=== PATIENT | female | born 1935 | race Caucasian/White ===

== ENCOUNTER 2016-11-21 13:28 | Inpatient (IN) | payer MEDICARE, OTHER ==
[~2016-11-21] VITALS: Ht 152.4 cm; Wt 45.9 kg
[~2016-11-21 13:28] MED LIST: ACET500T68 PO; CLON0.5T PO; CLON0.5T3 PO; CYAN500T17 PO; DICL100G18 TP; DIVA125C PO; DIVA500T2 PO; HYDR12.58 PO; LISI-373 PO; LISI10TA2 PO; MAGN2400 PO; MIRT15TA PO; OLAN5TAB5 PO; QUET25TA5 PO; TRAZ50TA15 PO
[2016-11-21 14:56] LABS: BASO % 0 % (0-3); EOS # 0.1 x10^3/uL (0.0-0.7); EOS % 2 % (0-3); HEMATOCRIT 34.3 % (36.0-47.0); HEMOGLOBIN 11.1 g/dL (12.0-15.5); LYMPH # 1.4 x10^3/uL (1.0-4.8); LYMPH % 16 % (24-48); MEAN CORPUSCULAR HEMOGLOBIN 31 pg (25-35); MEAN CORPUSCULAR HGB CONC 33 g/dL (31-37); MEAN CORPUSCULAR VOLUME 94 fL (79-100); MONO # 0.8 x10^3/uL (0.0-1.1); MONO % 9 % (0-9); NEUT # 6.3 x10^3uL (1.8-7.7); NEUT % 73 % (31-73); PLATELET COUNT 196 x10^3/uL (140-400); RED BLOOD COUNT 3.64 x10^6/uL (3.50-5.40); RED CELL DISTRIBUTION WIDTH 15.2 % (11.5-14.5); WHITE BLOOD COUNT 8.7 x10^3/uL (4.0-11.0)
[2016-11-21 15:07] LABS: ALBUMIN 3.7 g/dL (3.4-5.0); CALCIUM 10.5 mg/dL (8.5-10.1); CREATININE 1.3 mg/dL (0.6-1.0); GFR 39.2; TOTAL BILIRUBIN 0.4 mg/dL (0.2-1.0); TOTAL PROTEIN 7.5 g/dL (6.4-8.2)
--- NOTE | 2016-11-21 15:27 | EKG ---
[address] [address] Test Date: 2016-11-21 Test Time: 15:26:03 Pat Name: CLARKE SERVIN Department: Room: Gender: F Entry Level Administrative Assistant: : [id number] Requested By: NORTH HOUGH Order Number: [id number] Reading MD: Gaudencio Alfaro Measurements Intervals [place] Rate: 59 P: 60 GA: 142 QRS: -24 QRSD: 74 T: 65 QT: 432 QTc: 428 Interpretive Statements SINUS RHYTHM Electronically Signed On 11-28-2016 14:13:38 CDT by Gaudencio Alfaro
[2016-11-21 16:10] LABS: CLARITY,URINE CLOUDY
[2016-11-21 16:11] LABS: BILIRUBIN,URINE NEG (NEG); COLOR,URINE YELLOW; GLUCOSE,URINE NEG (NEG); NITRITE,URINE NEG (NEG); UROBILINOGEN,URINE 0.2 mg/dL (0.2 mg/dL)
[2016-11-21 16:12] LABS: BACTERIA,URINE MANY /HPF (0-FEW); RBC,URINE 0 /HPF (0-2); WBC,URINE >40 /HPF (0-4)
[2016-11-21] MEDS ORDERED: CIPROFLOXACIN HCL 500 MG TABLET PO ONE (17:45)
--- NOTE | 2016-11-21 18:42 | ED.ADGEN ---
Past History Past Medical History: Anxiety, Dementia, Hypertension, Hypothyroid, Other Past Surgical History: Other Alcohol Use: None Drug Use: None Adult General Chief Complaint Chief Complaint Encounter for medical evaluation for psychiatric admission HPI HPI Patient is a 81-year-old female with history of dementia who presents with counter for medical clearance for psychiatric admission. Patient's been confused agitated and combative with [facility] staff members. Patient alert, cooperative on ED evaluation. Denies current complaints. History is limited by the patient's short-term memory impairment. Review of Systems Review of Systems ROS as per HPI. Current Medications Current Medications Current Medications Medications (Trade) Dose Ordered Sig/Onelia Start Time Stop Time Status Last Admin Dose Admin Ciprofloxacin (Cipro) 500 mg 1X ONCE 11/21/16 17:45 11/21/16 17:46 DC 11/21/16 17:38 500 MG Allergies Allergies Allergies Coded Allergies Type Severity Reaction Last Updated Verified amoxicillin Allergy Intermediate 12/08/14 Yes dextromethorphan Allergy Intermediate 12/08/14 Yes phenylephrine Allergy Intermediate 12/08/14 Yes pyrilamine Allergy Intermediate 12/08/14 Yes Physical Exam Physical Exam Constitutional: Well developed, well nourished, no acute distress, non-toxic appearance. HENT: Normocephalic, atraumatic, bilateral external ears normal, oropharynx moist, nose normal. Eyes: PERRLA, EOMI, conjunctiva normal. Neck: Normal range of motion, no tenderness, supple. Cardiovascular:Heart rate regular rhythm, no murmur. Lungs & Thorax: Bilateral breath sounds clear to auscultation. Abdomen: Bowel sounds normal, soft, no tenderness. Skin: Warm, dry, no erythema. Back: No tenderness. Extremities: No tenderness. Neurologic: Alert and oriented X 1, normal motor function, normal sensory function no focal deficits noted. [] Psychologic: Affect normal, judgement normal, mood normal. [] Current Patient Data Vital Signs Vital Signs Date Time Temp Pulse Resp B/P Pulse Ox O2 Delivery O2 Flow Rate FiO2 11/21/16 17:55 66 16 130/74 98 Room Air 11/21/16 14:10 98.0 Lab Results Laboratory Tests Test 11/21/16 14:43 11/21/16 15:09 White Blood Count 8.7x10^3/uL (4.0-11.0) Red Blood Count 3.64x10^6/uL (3.50-5.40) Hemoglobin 11.1g/dL (12.0-15.5) L Hematocrit 34.3% (36.0-47.0) L Mean Corpuscular Volume 94fL (79-100) Mean Corpuscular Hemoglobin 31pg (25-35) Mean Corpuscular Hemoglobin Concent 33g/dL (31-37) Red Cell Distribution Width 15.2% (11.5-14.5) H Platelet Count 196x10^3/uL (140-400) Neutrophils (%) (Auto) 73% (31-73) Lymphocytes (%) (Auto) 16% (24-48) L Monocytes (%) (Auto) 9% (0-9) Eosinophils (%) (Auto) 2% (0-3) Basophils (%) (Auto) 0% (0-3) Neutrophils # (Auto) 6.3x10^3uL (1.8-7.7) Lymphocytes # (Auto) 1.4x10^3/uL (1.0-4.8) Monocytes # (Auto) 0.8x10^3/uL (0.0-1.1) Eosinophils # (Auto) 0.1x10^3/uL (0.0-0.7) Basophils # (Auto) 0.0x10^3/uL (0.0-0.2) Sodium Level 146mmol/L (136-145) H Potassium Level 4.0mmol/L (3.5-5.1) Chloride Level 107mmol/L (98-107) Carbon Dioxide Level 34mmol/L (21-32) H Anion Gap 5 (6-14) L Blood Urea Nitrogen 37mg/dL (7-20) H Creatinine 1.3mg/dL (0.6-1.0) H Estimated GFR (Cockcroft-Gault) 39.2 BUN/Creatinine Ratio 28 (6-20) H Glucose Level 136mg/dL (70-99) H Calcium Level 10.5mg/dL (8.5-10.1) H Total Bilirubin 0.4mg/dL (0.2-1.0) Aspartate Amino Transferase (AST) 15U/L (15-37) Alanine Aminotransferase (ALT) 20U/L (14-59) Alkaline Phosphatase 88U/L (46-116) Total Protein 7.5g/dL (6.4-8.2) Albumin 3.7g/dL (3.4-5.0) Albumin/Globulin Ratio 1.0 (1.0-1.7) Urine Collection Type U cath Urine Color Yellow Urine Clarity Cloudy Urine pH 7.0 Urine Specific [place] 1.020 Urine Protein 100 mg/dl (NEG-TRACE) Urine Glucose (UA) Negmg/dL (NEG) Urine Ketones (Stick) Tracemg/dL (NEG) Urine Blood Small (NEG) Urine Nitrite Neg (NEG) Urine Bilirubin Neg (NEG) Urine Urobilinogen Dipstick 0.2mg/dL (0.2 mg/dL) Urine Leukocyte Esterase Mod (NEG) Urine RBC 0/HPF (0-2) Urine WBC >40/HPF (0-4) Urine Squamous Epithelial Cells None/LPF Urine Bacteria Many/HPF (0-FEW) EKG EKG [] Radiology/Procedures Radiology/Procedures [] Impressions: Encounter for medical clearance for psychiatric admission Course & Med Decision Making Course & Med Decision Making Pertinent Labs and Imaging studies reviewed. (See chart for details) [Patient medically cleared. UTI addressed.] Final Impression Final Impression [1. Encounter for medical clearance for psychiatric admission. ] Problems: Dragon Disclaimer Dragon Disclaimer This electronic medical record was generated, in whole or in part, using a voice recognition dictation system. NORTH HOUGH DO Nov 21, 2016 18:42
[2016-11-21 20:03] VITALS: BP 129/77
[2016-11-21] MEDS ORDERED: MAGNESIUM HYDROXIDE 2,400 MG/30 ML ORAL.SUSP. PO PRN (20:15)
[2016-11-21] MEDS ORDERED: ACETAMINOPHEN 325 MG TABLET PO PRN (20:15)
[2016-11-21] MEDS ORDERED: MAG HYDROX/AL HYDROX/SIMETH 30 ML ORAL.SUSP PO PRN (20:15)
[2016-11-21] MEDS ORDERED: METHYL SALICYLATE/MENTHOL TOPICAL OINTMENT 29GM TUBE. TP PRN (20:15)
[2016-11-21] MEDS ORDERED: ACET500T68 PO (20:31)
[2016-11-21 20:48] LABS: VAL ACID 41 mcg/mL (50-100)
--- NOTE | 2016-11-21 21:06 | PDOC ---
Exam Tristin Demential Exam: Tristin Note: Please also refer to the separate dictated note~for this date of service dictated separately.~Patient seen individually. Discussed the patient with Nursing staff reviewed the chart.~Reviewed interim history and current functioning. Reviewed vital signs,~Labs/ Radiology~and current medications noted below. Continue current treatment with the changes noted in the dictated addendum note Assessment: Vital Signs: Vital Signs Date Time Temp Pulse Resp B/P Pulse Ox O2 Delivery O2 Flow Rate FiO2 11/21/16 20:03 98.1 58 16 129/77 95 Room Air Labs: Laboratory Tests Test 11/21/16 14:43 11/21/16 15:09 White Blood Count 8.7x10^3/uL (4.0-11.0) Red Blood Count 3.64x10^6/uL (3.50-5.40) Hemoglobin 11.1g/dL (12.0-15.5) L Hematocrit 34.3% (36.0-47.0) L Mean Corpuscular Volume 94fL (79-100) Mean Corpuscular Hemoglobin 31pg (25-35) Mean Corpuscular Hemoglobin Concent 33g/dL (31-37) Red Cell Distribution Width 15.2% (11.5-14.5) H Platelet Count 196x10^3/uL (140-400) Neutrophils (%) (Auto) 73% (31-73) Lymphocytes (%) (Auto) 16% (24-48) L Monocytes (%) (Auto) 9% (0-9) Eosinophils (%) (Auto) 2% (0-3) Basophils (%) (Auto) 0% (0-3) Neutrophils # (Auto) 6.3x10^3uL (1.8-7.7) Lymphocytes # (Auto) 1.4x10^3/uL (1.0-4.8) Monocytes # (Auto) 0.8x10^3/uL (0.0-1.1) Eosinophils # (Auto) 0.1x10^3/uL (0.0-0.7) Basophils # (Auto) 0.0x10^3/uL (0.0-0.2) Sodium Level 146mmol/L (136-145) H Potassium Level 4.0mmol/L (3.5-5.1) Chloride Level 107mmol/L (98-107) Carbon Dioxide Level 34mmol/L (21-32) H Anion Gap 5 (6-14) L Blood Urea Nitrogen 37mg/dL (7-20) H Creatinine 1.3mg/dL (0.6-1.0) H Estimated GFR (Cockcroft-Gault) 39.2 BUN/Creatinine Ratio 28 (6-20) H Glucose Level 136mg/dL (70-99) H Calcium Level 10.5mg/dL (8.5-10.1) H Magnesium Level 2.5mg/dL (1.8-2.4) H Total Bilirubin 0.4mg/dL (0.2-1.0) Aspartate Amino Transferase (AST) 15U/L (15-37) Alanine Aminotransferase (ALT) 20U/L (14-59) Alkaline Phosphatase 88U/L (46-116) Total Protein 7.5g/dL (6.4-8.2) Albumin 3.7g/dL (3.4-5.0) Albumin/Globulin Ratio 1.0 (1.0-1.7) Valproic Acid Level 41mcg/mL (50-100) L Valproic Acid Last Dose Date 11/20/16 Valproic Acid Last Dose Time 2100 Urine Collection Type U cath Urine Color Yellow Urine Clarity Cloudy Urine pH 7.0 Urine Specific [place] 1.020 Urine Protein 100 mg/dl (NEG-TRACE) Urine Glucose (UA) Negmg/dL (NEG) Urine Ketones (Stick) Tracemg/dL (NEG) Urine Blood Small (NEG) Urine Nitrite Neg (NEG) Urine Bilirubin Neg (NEG) Urine Urobilinogen Dipstick 0.2mg/dL (0.2 mg/dL) Urine Leukocyte Esterase Mod (NEG) Urine RBC 0/HPF (0-2) Urine WBC >40/HPF (0-4) Urine Squamous Epithelial Cells None/LPF Urine Bacteria Many/HPF (0-FEW) Current Medications: Meds: Current Medications Ciprofloxacin (Cipro) 500 mg 1X ONCE PO Last administered on 11/21/16t 17:38; Start 11/21/16 at 17:45; Stop 11/21/16 at 17:46; Status DC Acetaminophen (Tylenol) 650 mg PRN Q6HRS PRN PO PAIN / TEMP; Start 11/21/16 at 20:15 Multi-Ingredient Ointment (Analgesic [place]) 1 lisa PRN QID PRN TP MUSCLE PAIN; Start 11/21/16 at 20:15 Al Hydroxide/Mg Hydroxide (Mylanta Plus Xs) 15 ml PRN AFTMEALHC PRN PO DYSPEPSIA; Start 11/21/16 at 20:15 Magnesium Hydroxide (Milk Of Magnesia) 2,400 mg PRN QHS PRN PO CONSTIPATION; Start 11/21/16 at 20:15 Active Scripts Active Reported Acetaminophen 500 Mg Tablet 500 Mg PO Zyprexa Zydis (Olanzapine) 5 Mg Tab.rapdis 1.25 Mg PO PRN Q2HR PRN Remeron (Mirtazapine) 15 Mg Tablet 15 Mg PO QHS Milk Of Magnesia (Magnesium Hydroxide) 2,400 Mg/10 Ml Oral.susp 2,400 Mg PO PRN QHS PRN Acetaminophen 500 Mg Tablet 650 Mg PO PRN Q6HRS PRN Depakote Sprinkle (Divalproex Sodium) 125 Mg Cap.sprink 250 Mg PO BID Klonopin (Clonazepam) 0.5 Mg Tablet 0.25 Mg PO TID Trazodone Hcl 50 Mg Tablet 150 Mg PO HS Seroquel (Quetiapine Fumarate) 25 Mg Tablet 25 Mg PO BID92 PRN Voltaren (Diclofenac Sodium) 100 Gm Gel..gram. 2 Applic TP QID APPLY TO SACRAL AREA B-12 (Cyanocobalamin (Vitamin B-12)) 500 Mcg Tablet 1,000 Mcg PO DAILY Diagnosis: Problems: (1) Dementia with behavioral disturbance ILIA BUCKNER MD Nov 21, 2016 21:06
[2016-11-21] MEDS ORDERED: BIFI4CAP PO (21:32)
[2016-11-21] MEDS ORDERED: HYDR25SU18 RC (21:33)
[2016-11-21] MEDS ORDERED: MENT118G TP (21:34)
[2016-11-21] MEDS ORDERED: BISA10SU2 RC (21:35)
[2016-11-21] MEDS ORDERED: NA P133E2 RC (21:38)
[2016-11-21] MEDS ORDERED: LEVO25TA4 PO (21:43)
[2016-11-21] MEDS ORDERED: MEMA10TA PO (21:43)
[2016-11-21] MEDS ORDERED: CALC-157 PO (21:45)
[2016-11-21] MEDS ORDERED: POLY255P PO (21:46)
[2016-11-21] MEDS ORDERED: SENN1TAB7 PO (21:46)
[2016-11-21] MEDS ORDERED: TRAM50TA PO (21:47)
[2016-11-21] MEDS ORDERED: CHOL10003 PO (21:48)
--- NOTE | 2016-11-21 23:14 | NUR ---
Admission Note: Patient arrived from ED via gurney accompanied by staff. Pt's belongings were inventoried, pt was oriented to unit and unit routines. Medical History and Assessment entered. Will continue to monitor.
[2016-11-21] MEDS: DIVALPROEX 125 MG CAP.SPRINK PO SCH (23:30)
[2016-11-21] MEDS: MIRTAZAPINE 15 MG TABLET PO SCH (23:30)
--- NOTE | 2016-11-22 01:32 | NUR ---
Behavior Intervention Response and Plan: BIRP Note: Behavior: Assumed Care of patient, patient located in Day Room at shift change. Patient exhibited the following behavior Calm, Disorganized, Resistive. Brief assessment on rounds of vital signs, medication needs, lab studies, and pain. Treatment plan problems Dementia with BD, Alteration in Mood and Fall risk. Intervention: Patient assessed and the following interventions initiated safety checks 15 Minute Checks Cognitive Assessment , Head to toe Assessment , Medications. Response: After interactions and interventions patient responded in the following manner, Disorganized , Resistive ,Restless. Continue to assess behaviors and condition will continue to monitor throughout the shift as needed. Plan: Continue to monitor Master Treatment Plan for patient's progress toward short term goals of Decreased Aggression, Medication Compliance, terminal manager goals to return to previous living setting vs placement. Continue to assess patient for changes in above assessment. Monitor for medication needs, pain, and safety concerns. Hourly rounding performed to ensure safe environment.
[2016-11-22] MEDS ORDERED: HYDROCORTISONE ACETATE 25 MG SUPP.RECT RC PRN (06:30)
[2016-11-22] MEDS ORDERED: traMADol 50 MG TABLET PO PRN (06:30)
[2016-11-22] MEDS ORDERED: ACETAMINOPHEN 500 MG TABLET PO PRN (06:30)
[2016-11-22] MEDS ORDERED: NON FORMULARY ITEM (Magnesium Hydroxide (Milk Of Magnesia) 2,400 MG) PO PRN (06:30)
[2016-11-22] MEDS ORDERED: BISACODYL 10 MG SUPP.RECT RC PRN (06:30)
[2016-11-22] MEDS ORDERED: NON FORMULARY ITEM (Menthol (Biofreeze) 1 APP) TP PRN (06:30)
[2016-11-22 07:17] VITALS: BP 151/66
[2016-11-22] MEDS ORDERED: LEVOTHYROXINE 25 MCG TABLET. PO SCH (07:30)
[2016-11-22] MEDS: MEMANTINE 10 MG TABLET. PO SCH ×2 (08:44→20:13)
[2016-11-22] MEDS: SENNOSIDES/DOCUSATE 8.6/50MG TABLET. PO SCH ×2 (08:44→20:13)
[2016-11-22] MEDS: POLYETHYLENE GLYCOL 3350 17 GM PACKET. PO SCH (08:44)
[2016-11-22] MEDS: LACTOBACILLUS ACIDOPH & BULGAR 1 TABLET. PO SCH (08:44)
[2016-11-22] MEDS: CALCIUM CARB/VIT D3 500/200 TABLET PO SCH (08:44)
[2016-11-22] MEDS: CYANOCOBALAMIN (VITAMIN B-12) 1,000 MCG TABLET. PO SCH (08:44)
[2016-11-22] MEDS: CHOLECALCIFEROL (VITAMIN D3) 1,000 UNIT TABLET PO SCH (08:45)
--- NOTE | 2016-11-22 09:38 | NUR ---
SW reviewed Pt. insurance upon admit. Face sheet, CSNAP and Intake state Pt's insurance is Medicare primary and BCBS supplement. No auth needed at this time.
--- NOTE | 2016-11-22 10:09 | NUR ---
Behavior Intervention Response and Plan: BIRP Note: Behavior: Assumed Care of patient, patient located in Day Room at shift change. Patient exhibited the following behavior Restless, Disorganized, Irritable. Brief assessment on rounds of vital signs, medication needs, lab studies, and pain. Treatment plan problems . Intervention: Patient assessed and the following interventions initiated safety checks 15 Minute Checks Cognitive Assessment , Head to toe Assessment , Medications. Response: After interactions and interventions patient responded in the following manner, Disorganized , Compliant ,Compliant. Continue to assess behaviors and condition will continue to monitor throughout the shift as needed. Plan: Continue to monitor Master Treatment Plan for patient's progress toward short term goals of Decreased Agitation, Decreased Aggression, technician terminal and repeater goals to return to previous living setting vs placement. Continue to assess patient for changes in above assessment. Monitor for medication needs, pain, and safety concerns. Hourly rounding performed to ensure safe environment.
[2016-11-22] MEDS ORDERED: FOSFOMYCIN TROMETHAMINE 3 GM PACKET PO ONE (13:00)
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
--- NOTE | 2016-11-22 14:40 | ACF ---
Admission Criteria Forms PSYCHIATRIC DISORDERS Clinical Indications for Inpatient Care (Place 'X' for any and all applicable criteria): Ongoing inpatient care may be needed for ANY ONE of the following(1)(2)(3)(4)(6) (7)(8): [ ]I. Danger to self or others not manageable at lower level of care. [ ]II. Grave disability (eg, inability to perform self care necessary at lower level of care) [ ]III. Agitation or inappropriate behavior interfering with care for primary condition (eg, attempting to discontinue lines or drains prematurely, unable to cooperate with respiratory care) [X]IV. Severe disability or disorder indicated by ALL of the following: [X]a) Severe behavioral health disorder-related symptoms or condition indicated by ANY ONE of the following: [ ]i) Severe problem with cognition, memory, judgment, or impulse control [X]ii) Severe clinical manifestations (eg, hallucinations, delusions, other acute psychotic symptoms, edyta, extreme agitation or anxiety) [X]b) Patient management at lower level of care is not feasible until acute intervention or modification is initiated. Extended stay beyond goal length of stay for the primary condition may be indicated when ANY ONE of the following is present: (1)(2)(3)(4): [ ]a) Patient is a danger to self or others and not manageable at lower level of care. [ ]b) Behavior crisis management, including physical or chemical restraints, is required and is not available at a lower level of care. [ ]c) Behavioral symptoms (e.g., agitation, somnolence, inappropriate behavior) are present, and are not manageable at a lower level of care. [ ]d) Patient cannot understand follow-up treatment and crisis plan. [ ]e) Provider and supports are not sufficiently available at lower level of care. [ ]f) Patient cannot participate (e.g., verify absence of plan for harm) and is in needed of monitoring. The original [facility] [employer] content created by [facility] [employer] has been revised. The portions of the content which have been revised are identified through the use of italic text or in bold, and [facility] has neither reviewed nor approved the modified material. All other unmodified content is copyright [facility] [employer]. Please see references footnoted in the original [facility] edition 2016 Admission Criteria Met?: Yes KHALIF ELIZABETH Nov 22, 2016 14:40
--- NOTE | 2016-11-22 15:03 | NUR ---
pt up in wc. confused. impulsive at times. compliant with meds. appetite poor. to encourage fluids.
[2016-11-22 16:19] VITALS: BP 116/66
[2016-11-22 18:11] LABS: T3 TOTAL 90 ng/dL (71-180); THYROXINE 6.8 ug/dL (4.5-12.0)
[2016-11-22] MEDS: MIRTAZAPINE 15 MG TABLET PO SCH (20:13)
[2016-11-22] MEDS: DIVALPROEX 125 MG CAP.SPRINK PO SCH (20:13)
--- NOTE | 2016-11-22 21:06 | PDOC ---
Exam Tristin Demential Exam: Tristin Note: Please also refer to the separate dictated note~for this date of service dictated separately.~Patient seen individually. Discussed the patient with Nursing staff reviewed the chart.~Reviewed interim history and current functioning. Reviewed vital signs,~Labs/ Radiology~and current medications noted below. Continue current treatment with the changes noted in the dictated addendum note Assessment: Vital Signs: Vital Signs Date Time Temp Pulse Resp B/P Pulse Ox O2 Delivery O2 Flow Rate FiO2 11/22/16 16:19 96.7 81 16 116/66 95 11/21/16 20:03 Room Air I&O Intake and Output 11/22/16 07:00 Intake Total 50 ml Balance 50 ml Intake Oral 50 ml Current Medications: Meds: Current Medications Ciprofloxacin (Cipro) 500 mg 1X ONCE PO Last administered on 11/21/16 17:38; Start 11/21/16 at 17:45; Stop 11/21/16 at 17:46; Status DC Acetaminophen (Tylenol) 650 mg PRN Q6HRS PRN PO PAIN / TEMP; Start 11/21/16 at 20:15 Multi-Ingredient Ointment (Analgesic [place]) 1 emerson PRN QID PRN TP MUSCLE PAIN; Start 11/21/16 at 20:15 Al Hydroxide/Mg Hydroxide (Mylanta Plus Xs) 15 ml PRN AFTMEALHC PRN PO DYSPEPSIA; Start 11/21/16 at 20:15 Magnesium Hydroxide (Milk Of Magnesia) 2,400 mg PRN QHS PRN PO CONSTIPATION; Start 11/21/16 at 20:15 Divalproex Sodium (Depakote Sprinkles) 625 mg QHS PO Last administered on 20:13; Start 11/21/16 at 22:00 Memantine (Namenda) 10 mg BID PO Last administered on 11/22/16 20:13; Start at 09:00 Mirtazapine (Remeron) 15 mg QHS PO Last administered on 11/22/16 20:13; Start 11/21/16 at 22:00 Olanzapine (Zyprexa Zydis) 5 mg PRN QHS PRN PO PSYCHOSIS; Start 11/21/16 at 22: 00 Acetaminophen (Tylenol) 650 mg PRN Q6HRS PRN PO MILD PAIN / TEMP; Start at 06:30; Status Cancel Bisacodyl (Dulcolax Supp) 10 mg PRN DAILY PRN RC CONSTIPATION; Start 11/22/16 at 06:30 Calcium/Vitamin D (Oscal D 500mg/ 200uts) 1 tab DAILY PO Last administered on 08:44; Start 11/22/16 at 09:00 Vitamin D (Vitamin D3) 1,000 unit DAILY PO Last administered on 11/22/16 08:45 ; Start 11/22/16 at 09:00 Hydrocortisone Acetate (Anucort-Hc) 25 mg PRN QID PRN RC Hemmorhoids; Start at 06:30 Levothyroxine Sodium (Synthroid) 25 mcg DAILYAC PO Last administered on 06:31; Start 11/22/16 at 07:30 Polyethylene Glycol (miraLAX) 17 gm DAILY PO Last administered on 11/22/16 08: 44; Start 11/22/16 at 09:00 Senna/Docusate Sodium (Senna Plus) 1 tab BID PO Last administered on 11/22/16 20:13; Start 11/22/16 at 09:00 Tramadol HCl (Ultram) 50 mg PRN Q6HRS PRN PO MODERATE PAIN; Start 11/22/16 at 06:30 Lactobacillus Acidophilus (Bacid, Pat-Bid) 2 tab DAILY PO Last administered on 11/22/16 08:44; Start 11/22/16 at 09:00 Cyanocobalamin (Vitamin B-12) 1,000 mcg DAILY PO Last administered on 08:44; Start 11/22/16 at 09:00 Non-Formulary Medication 2,400 mg PRN QHS PRN PO CONSTIPATION; Start 11/22/16 at 06:30; Status UNV Non-Formulary Medication 1 emerson PRN QID PRN TP PAIN; Start 11/22/16 at 06:30; Status UNV Fosfomycin Tromethamine (Monurol) 3 gm 1X ONCE PO ; Start 11/22/16 at 13:00; Stop 11/22/16 at 13:02; Status DC Sertraline HCl (Zoloft) 25 mg DAILY PO ; Start 11/23/16 at 09:00; Stop 11/26/16 at 08:59 Sertraline HCl (Zoloft) 50 mg DAILY PO ; Start 11/26/16 at 09:00 Active Scripts Active Reported Vitamin D3 (Cholecalciferol (Vitamin D3)) 1,000 Unit Tablet 1,000 Unit PO DAILY Tramadol Hcl (Tramadol HCl) 50 Mg Tablet 50 Mg PO PRN Q6HRS PRN Senna-Docusate Sodium Tablet (Sennosides/Docusate Sodium) 1 Each Tablet 1 Tab PO BID Polyethylene Glycol 3350 255 Gm Powder 17 Gm PO DAILY Calcium 500 + Vit D 200 Tablet (Calcium Carbonate/Vitamin D3) 1 Each Tablet 1 Tab PO DAILY Namenda (Memantine Hcl) 10 Mg Tablet 28 Mg PO DAILY Levothyroxine Sodium 25 Mcg Tablet 25 Mcg PO DAILYAC Fleet Enema (Na Phos,M-B/Na Phos,Di-Ba) 133 Ml Enema 133 Ml RC DAILY Bisacodyl 10 Mg Supp.rect 10 Mg RC PRN DAILY PRN Biofreeze (Menthol) 118 Ml Gel..ml. 1 Emerson TP PRN QID PRN Anusol-Hc (Hydrocortisone Acetate) 25 Mg Supp.rect 25 Mg RC PRN QID PRN Align (Bifidobacterium Infantis) 4 Mg Capsule 4 Mg PO DAILY Acetaminophen 500 Mg Tablet 500 Mg PO QID Zyprexa Zydis (Olanzapine) 5 Mg Tab.rapdis 5 Mg PO QHS PRN Remeron (Mirtazapine) 15 Mg Tablet 15 Mg PO QHS Milk Of Magnesia (Magnesium Hydroxide) 2,400 Mg/10 Ml Oral.susp 2,400 Mg PO PRN QHS PRN Acetaminophen 500 Mg Tablet 650 Mg PO PRN Q6HRS PRN Depakote Sprinkle (Divalproex Sodium) 125 Mg Cap.sprink 625 Mg PO QHS B-12 (Cyanocobalamin (Vitamin B-12)) 500 Mcg Tablet 1,000 Mcg PO DAILY Diagnosis: Problems: (1) Dementia with behavioral disturbance (2) Anxiety disorder (3) Dementia in Alzheimer's disease with delusions (4) Dementia in Alzheimer's disease with depression (5) Dementia, vascular, with delusions (6) Dementia, vascular, with depression (7) Impulse control disorder ILIA BUCKNER MD Nov 22, 2016 21:06
--- NOTE | 2016-11-22 23:49 | NUR ---
Behavior Intervention Response and Plan: BIRP Note: Behavior: Assumed Care of patient, patient located in Day Room at shift change. Patient exhibited the following behavior Restless, Disorganized, Agitated. Brief assessment on rounds of vital signs, medication needs, lab studies, and pain. Treatment plan problems Dementia with BEd, Alteration in Mood, and Fall Risk. Intervention: Patient assessed and the following interventions initiated safety checks 15 Minute Checks Cognitive Assessment , Head to toe Assessment , Medications. Response: After interactions and interventions patient responded in the following manner, Restless , Disorganized ,Resistive. Continue to assess behaviors and condition will continue to monitor throughout the shift as needed. Plan: Continue to monitor Master Treatment Plan for patient's progress toward short term goals of Medication Compliance, Decreased Agitation, usp goals to return to previous living setting vs placement. Continue to assess patient for changes in above assessment. Monitor for medication needs, pain, and safety concerns. Hourly rounding performed to ensure safe environment.
--- NOTE | 2016-11-23 02:32 | NUR ---
Nursing Note: Pt very resistive to medication, restless, somewhat irritable. Pt awoke at 0200 confused, able to redirect. Will continue to monitor.
[2016-11-23 05:09] LABS: HEMOGLOBIN A1C 5.3 % (4.8-5.6)
[2016-11-23] MEDS: LEVOTHYROXINE 25 MCG TABLET. PO SCH (05:21)
[2016-11-23 05:57] VITALS: BP 125/79
[2016-11-23 07:06] LABS: ALBUMIN 3.8 g/dL (3.4-5.0); CREATININE 0.9 mg/dL (0.6-1.0); GFR 59.9; MAGNESIUM 2.3 mg/dL (1.8-2.4); TOTAL BILIRUBIN 0.3 mg/dL (0.2-1.0); TOTAL PROTEIN 7.8 g/dL (6.4-8.2)
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
--- NOTE | 2016-11-23 09:35 | NUR ---
Psychosocial Assessment completed from previous admit in 2014. Pt. born in [place], raised in [place] w/5 siblings during the Depression Era. Pt's father in Pt's 's, no known family history of alcohol or substance abuse. Pt. completed HS, named Mychal and has 1 child named Mckayla. Pt's in 2005. 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 Pt. has no history of alcohol, substance abuse or SI/HI. Pt. has resided at [facility] for at least 2 years. SW spoke w/Pt's dtr and was concerned w/some medications. SW encouraged Dtr. to call back and speak w/nursing. cMkayla will have a nurse from [facility] contact nursing at this facility to review medications.
[2016-11-23] MEDS: LACTOBACILLUS ACIDOPH & BULGAR 1 TABLET. PO SCH (09:37)
[2016-11-23] MEDS: MEMANTINE 10 MG TABLET. PO SCH ×2 (09:38→19:15)
[2016-11-23] MEDS: POLYETHYLENE GLYCOL 3350 17 GM PACKET. PO SCH (09:38)
[2016-11-23] MEDS: SENNOSIDES/DOCUSATE 8.6/50MG TABLET. PO SCH ×2 (09:38→19:16)
[2016-11-23] MEDS: CYANOCOBALAMIN (VITAMIN B-12) 1,000 MCG TABLET. PO SCH (09:38)
[2016-11-23] MEDS: CHOLECALCIFEROL (VITAMIN D3) 1,000 UNIT TABLET PO SCH (09:38)
[2016-11-23] MEDS: CALCIUM CARB/VIT D3 500/200 TABLET PO SCH (09:38)
[2016-11-23] MEDS: SERTRALINE 25 MG TABLET. PO SCH (09:39)
[2016-11-23] MEDS ORDERED: traZODone 50 MG TABLET. PO PRN (10:45)
--- NOTE | 2016-11-23 11:15 | NUR ---
THERAPEUTIC RECREATION GROUP NOTE TITLE :Movement to Music: Flexibility ACTIVITY : Movement/ Exercise GOAL : Increase morale, attention, flexibility. Decrease stress/anxiety. DURATION : 35 Minutes RESPONSE : No participation. Pt. was in room the entire time but did not engage with group.
--- NOTE | 2016-11-23 11:39 | NUR ---
Behavior Intervention Response and Plan: BIRP Note: Behavior: Assumed Care of patient, patient located in Patient Room at shift change. Patient exhibited the following behavior Disorganized, Exit Seeking, Wandering. Brief assessment on rounds of vital signs, medication needs, lab studies, and pain. Treatment plan problems . Intervention: Patient assessed and the following interventions initiated safety checks 15 Minute Checks Medications , Head to toe Assessment , Nutrition. Response: After interactions and interventions patient responded in the following manner, Social , Withdrawn ,Restless. Continue to assess behaviors and condition will continue to monitor throughout the shift as needed. 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 Continue to assess patient for changes in above assessment. Monitor for medication needs, pain, and safety concerns. Hourly rounding performed to ensure safe environment.
--- NOTE | 2016-11-23 14:45 | NUR ---
THERAPEUTIC RECREATION GROUP NOTE TITLE :Bin or Basket: [employer] history, quiz and game ACTIVITY : Activities and Games GOAL : Stimulate memory, increase socialization DURATION : 60 minutes RESPONSE : No participation.
[2016-11-23 15:42] VITALS: BP 121/74
[2016-11-23] MEDS: DIVALPROEX 125 MG CAP.SPRINK PO SCH (19:16)
[2016-11-23] MEDS: MIRTAZAPINE 15 MG TABLET PO SCH (19:16)
--- NOTE | 2016-11-23 21:12 | PDOC ---
Exam Tristin Demential Exam: Tristin Note: Please also refer to the separate dictated note~for this date of service dictated separately.~Patient seen individually. Discussed the patient with Nursing staff reviewed the chart.~Reviewed interim history and current functioning. Reviewed vital signs,~Labs/ Radiology~and current medications noted below. Continue current treatment with the changes noted in the dictated addendum note Assessment: Vital Signs: Vital Signs Date Time Temp Pulse Resp B/P Pulse Ox O2 Delivery O2 Flow Rate FiO2 11/23/16 19:00 100 11/23/16 15:42 98.1 63 18 121/74 11/21/16 20:03 Room Air I&O Intake and Output 11/23/16 07:00 Intake Total 410 ml Balance 410 ml Intake Oral 410 ml Labs: Laboratory Tests Test 11/23/16 06:29 Sodium Level 149mmol/L (136-145) H Potassium Level 4.0mmol/L (3.5-5.1) Chloride Level 108mmol/L (98-107) H Carbon Dioxide Level 32mmol/L (21-32) Anion Gap 9 (6-14) Blood Urea Nitrogen 34mg/dL (7-20) H Creatinine 0.9mg/dL (0.6-1.0) Estimated GFR (Cockcroft-Gault) 59.9 BUN/Creatinine Ratio 38 (6-20) H Glucose Level 106mg/dL (70-99) H Calcium Level 10.0mg/dL (8.5-10.1) Magnesium Level 2.3mg/dL (1.8-2.4) Total Bilirubin 0.3mg/dL (0.2-1.0) Aspartate Amino Transferase (AST) 27U/L (15-37) Alanine Aminotransferase (ALT) 30U/L (14-59) Alkaline Phosphatase 91U/L (46-116) Total Protein 7.8g/dL (6.4-8.2) Albumin 3.8g/dL (3.4-5.0) Albumin/Globulin Ratio 1.0 (1.0-1.7) Current Medications: Meds: Current Medications Ciprofloxacin (Cipro) 500 mg 1X ONCE PO Last administered on 11/21/16t 17:38; Start 11/21/16 at 17:45; Stop 11/21/16 at 17:46; Status DC Acetaminophen (Tylenol) 650 mg PRN Q6HRS PRN PO PAIN / TEMP; Start 11/21/16 at 20:15 Multi-Ingredient Ointment (Analgesic [place]) 1 emerson PRN QID PRN TP MUSCLE PAIN; Start 11/21/16 at 20:15 Al Hydroxide/Mg Hydroxide (Mylanta Plus Xs) 15 ml PRN AFTMEALHC PRN PO DYSPEPSIA; Start 11/21/16 at 20:15 Magnesium Hydroxide (Milk Of Magnesia) 2,400 mg PRN QHS PRN PO CONSTIPATION; Start 11/21/16 at 20:15 Divalproex Sodium (Depakote Sprinkles) 625 mg QHS PO Last administered on 19:16; Start 11/21/16 at 22:00 Memantine (Namenda) 10 mg BID PO Last administered on 11/23/16 19:15; Start at 09:00 Mirtazapine (Remeron) 15 mg QHS PO Last administered on 11/23/16 19:16; Start 11/21/16 at 22:00 Olanzapine (Zyprexa Zydis) 5 mg PRN QHS PRN PO PSYCHOSIS; Start 11/21/16 at 22: 00 Acetaminophen (Tylenol) 650 mg PRN Q6HRS PRN PO MILD PAIN / TEMP; Start at 06:30; Status Cancel Bisacodyl (Dulcolax Supp) 10 mg PRN DAILY PRN RC CONSTIPATION; Start 11/22/16 at 06:30 Calcium/Vitamin D (Oscal D 500mg/ 200uts) 1 tab DAILY PO Last administered on 09:38; Start 11/22/16 at 09:00 Vitamin D (Vitamin D3) 1,000 unit DAILY PO Last administered on 11/23/16 09:38 ; Start 11/22/16 at 09:00 Hydrocortisone Acetate (Anucort-Hc) 25 mg PRN QID PRN RC Hemmorhoids; Start at 06:30 Levothyroxine Sodium (Synthroid) 25 mcg DAILYAC PO Last administered on 06:31; Start 11/22/16 at 07:30; Stop 11/23/16 at 00:01; Status DC Polyethylene Glycol (miraLAX) 17 gm DAILY PO Last administered on 11/23/16 09: 38; Start 11/22/16 at 09:00 Senna/Docusate Sodium (Senna Plus) 1 tab BID PO Last administered on 11/23/16 19:16; Start 11/22/16 at 09:00 Tramadol HCl (Ultram) 50 mg PRN Q6HRS PRN PO MODERATE PAIN Last administered on 11/23/16 13:39; Start 11/22/16 at 06:30 Lactobacillus Acidophilus (Bacid, Pat-Bid) 2 tab DAILY PO Last administered on 11/23/16 09:37; Start 11/22/16 at 09:00 Cyanocobalamin (Vitamin B-12) 1,000 mcg DAILY PO Last administered on 09:38; Start 11/22/16 at 09:00 Non-Formulary Medication 2,400 mg PRN QHS PRN PO CONSTIPATION; Start 11/22/16 at 06:30; Status UNV Non-Formulary Medication 1 emerson PRN QID PRN TP PAIN; Start 11/22/16 at 06:30; Status UNV Fosfomycin Tromethamine (Monurol) 3 gm 1X ONCE PO ; Start 11/22/16 at 13:00; Stop 11/22/16 at 13:02; Status DC Sertraline HCl (Zoloft) 25 mg DAILY PO Last administered on 11/23/16 09:39; Start 11/23/16 at 09:00; Stop 11/26/16 at 08:59 Sertraline HCl (Zoloft) 50 mg DAILY PO ; Start 11/26/16 at 09:00 Levothyroxine Sodium (Synthroid) 25 mcg DAILY06 PO Last administered on 05:21; Start 11/23/16 at 06:00 Trazodone HCl (Desyrel) 50 mg PRN QHS PRN PO INSOMNIA; Start 11/23/16 at 10:45 Active Scripts Active Reported Vitamin D3 (Cholecalciferol (Vitamin D3)) 1,000 Unit Tablet 1,000 Unit PO DAILY Tramadol Hcl (Tramadol HCl) 50 Mg Tablet 50 Mg PO PRN Q6HRS PRN Senna-Docusate Sodium Tablet (Sennosides/Docusate Sodium) 1 Each Tablet 1 Tab PO BID Polyethylene Glycol 3350 255 Gm Powder 17 Gm PO DAILY Calcium 500 + Vit D 200 Tablet (Calcium Carbonate/Vitamin D3) 1 Each Tablet 1 Tab PO DAILY Namenda (Memantine Hcl) 10 Mg Tablet 28 Mg PO DAILY Levothyroxine Sodium 25 Mcg Tablet 25 Mcg PO DAILYAC Fleet Enema (Na Phos,M-B/Na Phos,Di-Ba) 133 Ml Enema 133 Ml RC DAILY Bisacodyl 10 Mg Supp.rect 10 Mg RC PRN DAILY PRN Biofreeze (Menthol) 118 Ml Gel..ml. 1 Emerson TP PRN QID PRN Anusol-Hc (Hydrocortisone Acetate) 25 Mg Supp.rect 25 Mg RC PRN QID PRN Align (Bifidobacterium Infantis) 4 Mg Capsule 4 Mg PO DAILY Acetaminophen 500 Mg Tablet 500 Mg PO QID Zyprexa Zydis (Olanzapine) 5 Mg Tab.rapdis 5 Mg PO QHS PRN Remeron (Mirtazapine) 15 Mg Tablet 15 Mg PO QHS Milk Of Magnesia (Magnesium Hydroxide) 2,400 Mg/10 Ml Oral.susp 2,400 Mg PO PRN QHS PRN Acetaminophen 500 Mg Tablet 650 Mg PO PRN Q6HRS PRN Depakote Sprinkle (Divalproex Sodium) 125 Mg Cap.sprink 625 Mg PO QHS B-12 (Cyanocobalamin (Vitamin B-12)) 500 Mcg Tablet 1,000 Mcg PO DAILY Diagnosis: Problems: (1) Dementia with behavioral disturbance (2) Anxiety disorder (3) Dementia in Alzheimer's disease with delusions (4) Dementia in Alzheimer's disease with depression (5) Dementia, vascular, with delusions (6) Dementia, vascular, with depression (7) Impulse control disorder ILIA BUCKNER MD Nov 23, 2016 21:12
--- NOTE | 2016-11-23 23:59 | NUR ---
Behavior Intervention Response and Plan: BIRP Note: Behavior: Assumed Care of patient, patient located in Day Room at shift change. Patient exhibited the following behavior Drowsy, Compliant, Disorganized. Brief assessment on rounds of vital signs, medication needs, lab studies, and pain. Treatment plan problems Dementia with BD, Fall Risk, and Fall Risk. Intervention: Patient assessed and the following interventions initiated safety checks 15 Minute Checks Cognitive Assessment , Head to toe Assessment , Medications. Response: After interactions and interventions patient responded in the following manner, Disorganized , Drowsy ,Cooperative. Continue to assess behaviors and condition will continue to monitor throughout the shift as needed. 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 Continue to assess patient for changes in above assessment. Monitor for medication needs, pain, and safety concerns. Hourly rounding performed to ensure safe environment.
[2016-11-24] MEDS: LEVOTHYROXINE 25 MCG TABLET. PO SCH (05:11)
[2016-11-24 06:24] VITALS: BP 181/94
[2016-11-24] MEDS: CYANOCOBALAMIN (VITAMIN B-12) 1,000 MCG TABLET. PO SCH (08:58)
[2016-11-24] MEDS: CALCIUM CARB/VIT D3 500/200 TABLET PO SCH (08:58)
[2016-11-24] MEDS: MEMANTINE 10 MG TABLET. PO SCH ×2 (08:58→19:51)
[2016-11-24] MEDS: LACTOBACILLUS ACIDOPH & BULGAR 1 TABLET. PO SCH (08:58)
[2016-11-24] MEDS: SERTRALINE 25 MG TABLET. PO SCH (08:58)
[2016-11-24] MEDS: POLYETHYLENE GLYCOL 3350 17 GM PACKET. PO SCH (08:59)
[2016-11-24] MEDS: CHOLECALCIFEROL (VITAMIN D3) 1,000 UNIT TABLET PO SCH (08:59)
[2016-11-24] MEDS: SENNOSIDES/DOCUSATE 8.6/50MG TABLET. PO SCH ×2 (08:59→19:51)
--- NOTE | 2016-11-24 10:40 | NUR ---
Behavior Intervention Response and Plan: BIRP Note: Behavior: Assumed Care of patient, patient located in Day Room at shift change. Patient exhibited the following behavior Restless, Exit Seeking, Disorganized. Brief assessment on rounds of vital signs, medication needs, lab studies, and pain. Treatment plan problems . Intervention: Patient assessed and the following interventions initiated safety checks 15 Minute Checks Head to toe Assessment , Medications , Oral Hydration. Response: After interactions and interventions patient responded in the following manner, Disorganized , Non Compliant ,Resistive. Continue to assess behaviors and condition will continue to monitor throughout the shift as needed. 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 Continue to assess patient for changes in above assessment. Monitor for medication needs, pain, and safety concerns. Hourly rounding performed to ensure safe environment.
[2016-11-24 15:28] VITALS: BP 119/81
--- NOTE | 2016-11-24 16:00 | NUR ---
THERAPEUTIC RECREATION GROUP NOTE TITLE :Sergo Daniele Planter Painting ACTIVITY : Arts and Crafts GOAL : Increase creativity, fine motor, socialization. DURATION : 60 minutes RESPONSE : Minimal prompting. Pt. needed hand over hand assistance to paint can. She was cooperative but did not comprehend the task.
--- NOTE | 2016-11-24 18:45 | NUR ---
ACTIVITY THERAPY ASSESSMENT Completed based on observations and interview on this day at this time in the day room. Pt. was agreeable but had difficulty expressing herself and answering questions effectively. When asked what she likes to do for fun, Pt. smiled and started humming a tune. Pt. keeps to herself mostly but stays around group. Initial goal: Pt. will participate in all groups she is invited to.
--- NOTE | 2016-11-24 19:00 | NUR ---
THERAPEUTIC RECREATION GROUP NOTE TITLE :Complete the popular phrase/ idiom ACTIVITY : Cognitive Stimulation GOAL : Stimulate memory, Increase problem solving DURATION : 60 minutes RESPONSE : Minimal participation. Pt. sat with group the entire time but was quiet and did not shout out guesses. She did not find the correct word after being asked directly and with several clues.
[2016-11-24] MEDS: MIRTAZAPINE 15 MG TABLET PO SCH (19:51)
[2016-11-24] MEDS: DIVALPROEX 125 MG CAP.SPRINK PO SCH (19:52)
--- NOTE | 2016-11-24 21:04 | PDOC ---
Exam Tristin Demential Exam: Tristin Note: Please also refer to the separate dictated note~for this date of service dictated separately.~Patient seen individually. Discussed the patient with Nursing staff reviewed the chart.~Reviewed interim history and current functioning. Reviewed vital signs,~Labs/ Radiology~and current medications noted below. Continue current treatment with the changes noted in the dictated addendum note Assessment: Vital Signs: Vital Signs Date Time Temp Pulse Resp B/P Pulse Ox O2 Delivery O2 Flow Rate FiO2 11/24/16 15:28 97.2 73 18 119/81 95 11/24/16 05:52 Room Air I&O Intake and Output 11/24/16 07:00 Intake Total 1080 ml Balance 1080 ml Intake Oral 1080 ml Current Medications: Meds: Current Medications Ciprofloxacin (Cipro) 500 mg 1X ONCE PO Last administered on 11/21/16 17:38; Start 11/21/16 at 17:45; Stop 11/21/16 at 17:46; Status DC Acetaminophen (Tylenol) 650 mg PRN Q6HRS PRN PO PAIN / TEMP; Start 11/21/16 at 20:15 Multi-Ingredient Ointment (Analgesic [facility]) 1 emerson PRN QID PRN TP MUSCLE PAIN; Start 11/21/16 at 20:15 Al Hydroxide/Mg Hydroxide (Mylanta Plus Xs) 15 ml PRN AFTMEALHC PRN PO DYSPEPSIA; Start 11/21/16 at 20:15 Magnesium Hydroxide (Milk Of Magnesia) 2,400 mg PRN QHS PRN PO CONSTIPATION; Start 11/21/16 at 20:15 Divalproex Sodium (Depakote Sprinkles) 625 mg QHS PO Last administered on 19:16; Start 11/21/16 at 22:00; Stop 11/24/16 at 18:43; Status DC Memantine (Namenda) 10 mg BID PO Last administered on 11/24/16 19:51; Start at 09:00 Mirtazapine (Remeron) 15 mg QHS PO Last administered on 11/24/16 19:51; Start 11/21/16 at 22:00 Olanzapine (Zyprexa Zydis) 5 mg PRN QHS PRN PO PSYCHOSIS; Start 11/21/16 at 22: 00 Acetaminophen (Tylenol) 650 mg PRN Q6HRS PRN PO MILD PAIN / TEMP; Start at 06:30; Status Cancel Bisacodyl (Dulcolax Supp) 10 mg PRN DAILY PRN RC CONSTIPATION; Start 11/22/16 at 06:30 Calcium/Vitamin D (Oscal D 500mg/ 200uts) 1 tab DAILY PO Last administered on 08:58; Start 11/22/16 at 09:00 Vitamin D (Vitamin D3) 1,000 unit DAILY PO Last administered on 11/24/16 08:59 ; Start 11/22/16 at 09:00 Hydrocortisone Acetate (Anucort-Hc) 25 mg PRN QID PRN RC Hemmorhoids; Start at 06:30 Levothyroxine Sodium (Synthroid) 25 mcg DAILYAC PO Last administered on 06:31; Start 11/22/16 at 07:30; Stop 11/23/16 at 00:01; Status DC Polyethylene Glycol (miraLAX) 17 gm DAILY PO Last administered on 11/24/16 08: 59; Start 11/22/16 at 09:00 Senna/Docusate Sodium (Senna Plus) 1 tab BID PO Last administered on 11/24/16 19:51; Start 11/22/16 at 09:00 Tramadol HCl (Ultram) 50 mg PRN Q6HRS PRN PO MODERATE PAIN Last administered on 11/23/16 13:39; Start 11/22/16 at 06:30 Lactobacillus Acidophilus (Bacid, Pat-Bid) 2 tab DAILY PO Last administered on 11/24/16 08:58; Start 11/22/16 at 09:00 Cyanocobalamin (Vitamin B-12) 1,000 mcg DAILY PO Last administered on 08:58; Start 11/22/16 at 09:00 Non-Formulary Medication 2,400 mg PRN QHS PRN PO CONSTIPATION; Start 11/22/16 at 06:30; Status UNV Non-Formulary Medication 1 emerson PRN QID PRN TP PAIN; Start 11/22/16 at 06:30; Status UNV Fosfomycin Tromethamine (Monurol) 3 gm 1X ONCE PO ; Start 11/22/16 at 13:00; Stop 11/22/16 at 13:02; Status DC Sertraline HCl (Zoloft) 25 mg DAILY PO Last administered on 11/24/16 08:58; Start 11/23/16 at 09:00; Stop 11/26/16 at 08:59 Sertraline HCl (Zoloft) 50 mg DAILY PO ; Start 11/26/16 at 09:00 Levothyroxine Sodium (Synthroid) 25 mcg DAILY06 PO Last administered on 05:11; Start 11/23/16 at 06:00 Trazodone HCl (Desyrel) 50 mg PRN QHS PRN PO INSOMNIA; Start 11/23/16 at 10:45 Divalproex Sodium (Depakote Sprinkles) 250 mg DAILYWBKFT PO ; Start 11/25/16 at 08:00 Divalproex Sodium (Depakote Sprinkles) 500 mg HS PO Last administered on 19:52; Start 11/24/16 at 21:00 Active Scripts Active Reported Vitamin D3 (Cholecalciferol (Vitamin D3)) 1,000 Unit Tablet 1,000 Unit PO DAILY Tramadol Hcl (Tramadol HCl) 50 Mg Tablet 50 Mg PO PRN Q6HRS PRN Senna-Docusate Sodium Tablet (Sennosides/Docusate Sodium) 1 Each Tablet 1 Tab PO BID Polyethylene Glycol 3350 255 Gm Powder 17 Gm PO DAILY Calcium 500 + Vit D 200 Tablet (Calcium Carbonate/Vitamin D3) 1 Each Tablet 1 Tab PO DAILY Namenda (Memantine Hcl) 10 Mg Tablet 28 Mg PO DAILY Levothyroxine Sodium 25 Mcg Tablet 25 Mcg PO DAILYAC Fleet Enema (Na Phos,M-B/Na Phos,Di-Ba) 133 Ml Enema 133 Ml RC DAILY Bisacodyl 10 Mg Supp.rect 10 Mg RC PRN DAILY PRN Biofreeze (Menthol) 118 Ml Gel..ml. 1 Emerson TP PRN QID PRN Anusol-Hc (Hydrocortisone Acetate) 25 Mg Supp.rect 25 Mg RC PRN QID PRN Align (Bifidobacterium Infantis) 4 Mg Capsule 4 Mg PO DAILY Acetaminophen 500 Mg Tablet 500 Mg PO QID Zyprexa Zydis (Olanzapine) 5 Mg Tab.rapdis 5 Mg PO QHS PRN Remeron (Mirtazapine) 15 Mg Tablet 15 Mg PO QHS Milk Of Magnesia (Magnesium Hydroxide) 2,400 Mg/10 Ml Oral.susp 2,400 Mg PO PRN QHS PRN Acetaminophen 500 Mg Tablet 650 Mg PO PRN Q6HRS PRN Depakote Sprinkle (Divalproex Sodium) 125 Mg Cap.sprink 625 Mg PO QHS B-12 (Cyanocobalamin (Vitamin B-12)) 500 Mcg Tablet 1,000 Mcg PO DAILY Diagnosis: Problems: (1) Dementia with behavioral disturbance (2) Anxiety disorder (3) Dementia in Alzheimer's disease with delusions (4) Dementia in Alzheimer's disease with depression (5) Dementia, vascular, with delusions (6) Dementia, vascular, with depression (7) Impulse control disorder ILIA BUCKNER MD Nov 24, 2016 21:04
--- NOTE | 2016-11-24 21:15 | NUR ---
Behavior Intervention Response and Plan: BIRP Note: Behavior: Assumed Care of patient, patient located in Day Room at shift change. Patient exhibited the following behavior Restless, Anxious, Interactive. Brief assessment on rounds of vital signs, medication needs, lab studies, and pain. Treatment plan problems: Dementia with BD, alteration in Mood, Fall Risk . Intervention: Patient assessed and the following interventions initiated safety checks 15 Minute Checks Cognitive Assessment , Head to toe Assessment , Medications. Response: After interactions and interventions patient responded in the following manner, Calm , Compliant ,Cooperative. Continue to assess behaviors and condition will continue to monitor throughout the shift as needed. 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 Continue to assess patient for changes in above assessment. Monitor for medication needs, pain, and safety concerns. Hourly rounding performed to ensure safe environment.
[2016-11-25] MEDS: LEVOTHYROXINE 25 MCG TABLET. PO SCH (06:10)
[2016-11-25 06:32] VITALS: BP 159/76
[2016-11-25] MEDS: POLYETHYLENE GLYCOL 3350 17 GM PACKET. PO SCH (08:35)
[2016-11-25] MEDS: LACTOBACILLUS ACIDOPH & BULGAR 1 TABLET. PO SCH (08:35)
[2016-11-25] MEDS: DIVALPROEX 125 MG CAP.SPRINK PO SCH ×2 (08:35→19:43)
[2016-11-25] MEDS: SENNOSIDES/DOCUSATE 8.6/50MG TABLET. PO SCH ×2 (08:36→19:42)
[2016-11-25] MEDS: CYANOCOBALAMIN (VITAMIN B-12) 1,000 MCG TABLET. PO SCH (08:36)
[2016-11-25] MEDS: CHOLECALCIFEROL (VITAMIN D3) 1,000 UNIT TABLET PO SCH (08:36)
[2016-11-25] MEDS: MEMANTINE 10 MG TABLET. PO SCH ×2 (08:36→19:42)
[2016-11-25] MEDS: SERTRALINE 25 MG TABLET. PO SCH (08:36)
[2016-11-25] MEDS: CALCIUM CARB/VIT D3 500/200 TABLET PO SCH (08:36)
--- NOTE | 2016-11-25 10:53 | NUR ---
Behavior Intervention Response and Plan: BIRP Note: Behavior: Assumed Care of patient, patient located in Day Room at shift change. Patient exhibited the following behavior calm, cooperative, compliant, and confused. Brief assessment on rounds of vital signs, medication needs, lab studies, and pain. Treatment plan problems: Dementia with BD, alteration in Mood, Fall Risk . Intervention: Patient assessed and the following interventions initiated safety checks 15 Minute Checks Cognitive Assessment , Head to toe Assessment , Medications. Response: After interactions and interventions patient responded in the following manner, Calm , Compliant ,Cooperative. Continue to assess behaviors and condition will continue to monitor throughout the shift as needed. Plan: Continue to monitor Master Treatment Plan for patient's progress toward short term goals of Decreased agitation, Decreased Anxiety, Medication Compliance, Improved Mood, group home goals to return to previous living setting vs placement. Continue to assess patient for changes in above assessment. Monitor for medication needs, pain, and safety concerns. Hourly rounding performed to ensure safe environment.
--- NOTE | 2016-11-25 11:00 | NUR ---
THERAPEUTIC RECREATION GROUP NOTE TITLE :: Flower planting in painted tin cans ACTIVITY : Sensory Stimulation GOAL : Increase feeling of wellness, socialization, and facilitate memory DURATION : 30 minutes RESPONSE : No participation.
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
[2016-11-25 16:15] VITALS: BP 111/67
[2016-11-25] MEDS ORDERED: MELATONIN 3 MG TABLET PO PRN (18:30)
[2016-11-25] MEDS: MIRTAZAPINE 15 MG TABLET PO SCH (19:42)
--- NOTE | 2016-11-25 20:45 | NUR ---
Behavior Intervention Response and Plan: BIRP Note: Behavior: Assumed Care of patient, patient located in Day Room at shift change. Patient exhibited the following behavior Calm, anxious Withdrawn. Brief assessment on rounds of vital signs, medication needs, lab studies, and pain. Treatment plan problems: Dementia with BD, alteration in mood, fall risk . Intervention: Patient assessed and the following interventions initiated safety checks 15 Minute Checks Cognitive Assessment , Head to toe Assessment , Medications. Response: After interactions and interventions patient responded in the following manner, Calm , Cooperative ,Withdrawn. Continue to assess behaviors and condition will continue to monitor throughout the shift as needed. 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 Continue to assess patient for changes in above assessment. Monitor for medication needs, pain, and safety concerns. Hourly rounding performed to ensure safe environment.
--- NOTE | 2016-11-25 21:12 | PDOC ---
Exam Tristin Demential Exam: Tristin Note: Please also refer to the separate dictated note~for this date of service dictated separately.~Patient seen individually. Discussed the patient with Nursing staff reviewed the chart.~Reviewed interim history and current functioning. Reviewed vital signs,~Labs/ Radiology~and current medications noted below. Continue current treatment with the changes noted in the dictated addendum note Assessment: Vital Signs: Vital Signs Date Time Temp Pulse Resp B/P Pulse Ox O2 Delivery O2 Flow Rate FiO2 11/25/16 16:15 97.4 78 16 111/67 98 11/25/16 06:32 Room Air I&O Intake and Output 11/25/16 07:00 Intake Total 480 ml Balance 480 ml Intake Oral 480 ml Current Medications: Meds: Current Medications Ciprofloxacin (Cipro) 500 mg 1X ONCE PO Last administered on 11/21/16 17:38; Start 11/21/16 at 17:45; Stop 11/21/16 at 17:46; Status DC Acetaminophen (Tylenol) 650 mg PRN Q6HRS PRN PO PAIN / TEMP; Start 11/21/16 at 20:15 Multi-Ingredient Ointment (Analgesic [place]) 1 emerson PRN QID PRN TP MUSCLE PAIN; Start 11/21/16 at 20:15 Al Hydroxide/Mg Hydroxide (Mylanta Plus Xs) 15 ml PRN AFTMEALHC PRN PO DYSPEPSIA; Start 11/21/16 at 20:15 Magnesium Hydroxide (Milk Of Magnesia) 2,400 mg PRN QHS PRN PO CONSTIPATION; Start 11/21/16 at 20:15 Divalproex Sodium (Depakote Sprinkles) 625 mg QHS PO Last administered on 19:16; Start 11/21/16 at 22:00; Stop 11/24/16 at 18:43; Status DC Memantine (Namenda) 10 mg BID PO Last administered on 11/25/16 19:42; Start at 09:00 Mirtazapine (Remeron) 15 mg QHS PO Last administered on 11/25/16 19:42; Start 11/21/16 at 22:00 Olanzapine (Zyprexa Zydis) 5 mg PRN QHS PRN PO PSYCHOSIS Last administered on 16:00; Start 11/21/16 at 22:00 Acetaminophen (Tylenol) 650 mg PRN Q6HRS PRN PO MILD PAIN / TEMP; Start at 06:30; Status Cancel Bisacodyl (Dulcolax Supp) 10 mg PRN DAILY PRN RC CONSTIPATION; Start 11/22/16 at 06:30 Calcium/Vitamin D (Oscal D 500mg/ 200uts) 1 tab DAILY PO Last administered on 08:36; Start 11/22/16 at 09:00 Vitamin D (Vitamin D3) 1,000 unit DAILY PO Last administered on 11/25/16 08:36 ; Start 11/22/16 at 09:00 Hydrocortisone Acetate (Anucort-Hc) 25 mg PRN QID PRN RC Hemmorhoids; Start at 06:30 Levothyroxine Sodium (Synthroid) 25 mcg DAILYAC PO Last administered on 06:31; Start 11/22/16 at 07:30; Stop 11/23/16 at 00:01; Status DC Polyethylene Glycol (miraLAX) 17 gm DAILY PO Last administered on 11/25/16 08: 35; Start 11/22/16 at 09:00 Senna/Docusate Sodium (Senna Plus) 1 tab BID PO Last administered on 11/25/16 19:42; Start 11/22/16 at 09:00 Tramadol HCl (Ultram) 50 mg PRN Q6HRS PRN PO MODERATE PAIN Last administered on 11/23/16 13:39; Start 11/22/16 at 06:30 Lactobacillus Acidophilus (Bacid, Pat-Bid) 2 tab DAILY PO Last administered on 11/25/16 08:35; Start 11/22/16 at 09:00 Cyanocobalamin (Vitamin B-12) 1,000 mcg DAILY PO Last administered on 08:36; Start 11/22/16 at 09:00 Non-Formulary Medication 2,400 mg PRN QHS PRN PO CONSTIPATION; Start 11/22/16 at 06:30; Status UNV Non-Formulary Medication 1 emerson PRN QID PRN TP PAIN; Start 11/22/16 at 06:30; Status UNV Fosfomycin Tromethamine (Monurol) 3 gm 1X ONCE PO ; Start 11/22/16 at 13:00; Stop 11/22/16 at 13:02; Status DC Sertraline HCl (Zoloft) 25 mg DAILY PO Last administered on 11/25/16 08:36; Start 11/23/16 at 09:00; Stop 11/26/16 at 08:59 Sertraline HCl (Zoloft) 50 mg DAILY PO ; Start 11/26/16 at 09:00 Levothyroxine Sodium (Synthroid) 25 mcg DAILY06 PO Last administered on 06:10; Start 11/23/16 at 06:00 Trazodone HCl (Desyrel) 50 mg PRN QHS PRN PO INSOMNIA; Start 11/23/16 at 10:45 ; Stop 11/25/16 at 18:31; Status DC Divalproex Sodium (Depakote Sprinkles) 250 mg DAILYWBKFT PO Last administered on 11/25/16 08:35; Start 11/25/16 at 08:00 Divalproex Sodium (Depakote Sprinkles) 500 mg HS PO Last administered on 19:43; Start 11/24/16 at 21:00 Melatonin 3 mg PRN QHS PRN PO INSOMNIA; Start 11/25/16 at 18:30 Active Scripts Active Reported Vitamin D3 (Cholecalciferol (Vitamin D3)) 1,000 Unit Tablet 1,000 Unit PO DAILY Tramadol Hcl (Tramadol HCl) 50 Mg Tablet 50 Mg PO PRN Q6HRS PRN Senna-Docusate Sodium Tablet (Sennosides/Docusate Sodium) 1 Each Tablet 1 Tab PO BID Polyethylene Glycol 3350 255 Gm Powder 17 Gm PO DAILY Calcium 500 + Vit D 200 Tablet (Calcium Carbonate/Vitamin D3) 1 Each Tablet 1 Tab PO DAILY Namenda (Memantine Hcl) 10 Mg Tablet 28 Mg PO DAILY Levothyroxine Sodium 25 Mcg Tablet 25 Mcg PO DAILYAC Fleet Enema (Na Phos,M-B/Na Phos,Di-Ba) 133 Ml Enema 133 Ml RC DAILY Bisacodyl 10 Mg Supp.rect 10 Mg RC PRN DAILY PRN Biofreeze (Menthol) 118 Ml Gel..ml. 1 Emerson TP PRN QID PRN Anusol-Hc (Hydrocortisone Acetate) 25 Mg Supp.rect 25 Mg RC PRN QID PRN Align (Bifidobacterium Infantis) 4 Mg Capsule 4 Mg PO DAILY Acetaminophen 500 Mg Tablet 500 Mg PO QID Zyprexa Zydis (Olanzapine) 5 Mg Tab.rapdis 5 Mg PO QHS PRN Remeron (Mirtazapine) 15 Mg Tablet 15 Mg PO QHS Milk Of Magnesia (Magnesium Hydroxide) 2,400 Mg/10 Ml Oral.susp 2,400 Mg PO PRN QHS PRN Acetaminophen 500 Mg Tablet 650 Mg PO PRN Q6HRS PRN Depakote Sprinkle (Divalproex Sodium) 125 Mg Cap.sprink 625 Mg PO QHS B-12 (Cyanocobalamin (Vitamin B-12)) 500 Mcg Tablet 1,000 Mcg PO DAILY Diagnosis: Problems: (1) Dementia with behavioral disturbance (2) Anxiety disorder (3) Dementia in Alzheimer's disease with delusions (4) Dementia in Alzheimer's disease with depression (5) Dementia, vascular, with delusions (6) Dementia, vascular, with depression (7) Impulse control disorder ILIA BUCKNER MD Nov 25, 2016 21:12
[2016-11-26] MEDS: LEVOTHYROXINE 25 MCG TABLET. PO SCH (06:44)
[2016-11-26 08:16] LABS: BASO % 1 % (0-3); EOS # 0.2 x10^3/uL (0.0-0.7); EOS % 4 % (0-3); HEMATOCRIT 35.4 % (36.0-47.0); HEMOGLOBIN 11.6 g/dL (12.0-15.5); LYMPH # 2.2 x10^3/uL (1.0-4.8); LYMPH % 41 % (24-48); MEAN CORPUSCULAR HEMOGLOBIN 31 pg (25-35); MEAN CORPUSCULAR HGB CONC 33 g/dL (31-37); MEAN CORPUSCULAR VOLUME 94 fL (79-100); MONO # 0.6 x10^3/uL (0.0-1.1); MONO % 12 % (0-9); NEUT # 2.4 x10^3uL (1.8-7.7); NEUT % 43 % (31-73); PLATELET COUNT 198 x10^3/uL (140-400); RED BLOOD COUNT 3.77 x10^6/uL (3.50-5.40); RED CELL DISTRIBUTION WIDTH 15.2 % (11.5-14.5); WHITE BLOOD COUNT 5.5 x10^3/uL (4.0-11.0)
[2016-11-26 08:24] LABS: ALBUMIN 3.5 g/dL (3.4-5.0); ALBUMIN/GLOBULIN RATIO 0.9 (1.0-1.7); CALCIUM 9.5 mg/dL (8.5-10.1); CREATININE 0.9 mg/dL (0.6-1.0); GFR 59.9; POTASSIUM 3.7 mmol/L (3.5-5.1); TOTAL BILIRUBIN 0.3 mg/dL (0.2-1.0); TOTAL PROTEIN 7.3 g/dL (6.4-8.2)
[2016-11-26] MEDS: LACTOBACILLUS ACIDOPH & BULGAR 1 TABLET. PO SCH (08:50)
[2016-11-26] MEDS: DIVALPROEX 125 MG CAP.SPRINK PO SCH ×2 (08:50→19:51)
[2016-11-26] MEDS: MEMANTINE 10 MG TABLET. PO SCH ×2 (08:50→19:51)
[2016-11-26] MEDS: CALCIUM CARB/VIT D3 500/200 TABLET PO SCH (08:50)
[2016-11-26] MEDS: POLYETHYLENE GLYCOL 3350 17 GM PACKET. PO SCH (08:50)
[2016-11-26] MEDS: SENNOSIDES/DOCUSATE 8.6/50MG TABLET. PO SCH ×2 (08:50→19:51)
[2016-11-26] MEDS: CYANOCOBALAMIN (VITAMIN B-12) 1,000 MCG TABLET. PO SCH (08:51)
[2016-11-26] MEDS: CHOLECALCIFEROL (VITAMIN D3) 1,000 UNIT TABLET PO SCH (08:51)
[2016-11-26] MEDS: SERTRALINE 25 MG TABLET. PO SCH (08:53)
--- NOTE | 2016-11-26 09:48 | NUR ---
Behavior Intervention Response and Plan: BIRP Note: Behavior: Assumed Care of patient, patient located in Day Room at shift change. Patient exhibited the following behavior calm, cooperative, compliant, and confused. Brief assessment on rounds of vital signs, medication needs, lab studies, and pain. Treatment plan problems: Dementia with BD, alteration in Mood, Fall Risk . Intervention: Patient assessed and the following interventions initiated safety checks 15 Minute Checks Cognitive Assessment , Head to toe Assessment , Medications. Response: After interactions and interventions patient responded in the following manner, Calm , Compliant ,Cooperative. Continue to assess behaviors and condition will continue to monitor throughout the shift as needed. Plan: Continue to monitor Master Treatment Plan for patient's progress toward short term goals of Decreased agitation, Decreased Anxiety, Medication Compliance, Improved Mood, half-way goals to return to previous living setting vs placement. Continue to assess patient for changes in above assessment. Monitor for medication needs, pain, and safety concerns. Hourly rounding performed to ensure safe environment.
--- NOTE | 2016-11-26 14:07 | NUR ---
Pt agitated at table in day room, attempting to stand unassisted and agitated with redirection. Pt walked down the mera to the rest room where pt voided and had a bowel movement. Pt then walked back to the day room. Pt wandered dayroom and was hallucinating AEB pt trying to hand peers what was in her hands and was striking out when peers where not take what was in her hands. PRN zyprexa zydis given.
[2016-11-26 17:09] VITALS: BP 169/74
--- NOTE | 2016-11-26 18:48 | PN ---
DATE: 11/25/2016 PSYCHIATRIC PROGRESS NOTE This is a late entry of 11/25/2016 covers elements not covered in my initial note. SUBJECTIVE: Per the previous evening, the patient was labile, resistive to medications during the day on 11/25/2016. She has done better till 1600. Then was agitated, anxious, delusional received Zyprexa p.r.n. because she believed people were trying to kill her then did better. Family have shared with nursing staff they feel she has shaking on trazodone. We have not administered trazodone for 3or 4 days in between change it to melatonin 3 mg at bedtime. REVIEW OF SYSTEMS: No CV, , pulmonary, eye, ENT system symptoms on review. Reliability poor. MENTAL STATUS EXAM: Oriented to herself. Insight, judgment, recent and remote memory, attention, concentration, fund of knowledge poor, consistent with her diagnosis mentioned in my initial note. PLAN: Continue current psychotropics and the change of trazodone to melatonin as noted. ILIA BUCKNER MD DR: KAYDEN/francesca JOB#: [id number] / [id number]
[2016-11-26] MEDS: MIRTAZAPINE 15 MG TABLET PO SCH (19:51)
--- NOTE | 2016-11-26 21:10 | PDOC ---
Exam Tristin Demential Exam: Tristin Note: Please also refer to the separate dictated note~for this date of service dictated separately.~Patient seen individually. Discussed the patient with Nursing staff reviewed the chart.~Reviewed interim history and current functioning. Reviewed vital signs,~Labs/ Radiology~and current medications noted below. Continue current treatment with the changes noted in the dictated addendum note Assessment: Vital Signs: Vital Signs Date Time Temp Pulse Resp B/P Pulse Ox O2 Delivery O2 Flow Rate FiO2 11/26/16 17:09 97.4 81 16 169/74 97 11/25/16 06:32 Room Air I&O Intake and Output 11/26/16 07:00 Intake Total 720 ml Balance 720 ml Intake Oral 720 ml # Bowel Movements 1 Labs: Laboratory Tests Test 11/26/16 07:30 White Blood Count 5.5x10^3/uL (4.0-11.0) Red Blood Count 3.77x10^6/uL (3.50-5.40) Hemoglobin 11.6g/dL (12.0-15.5) L Hematocrit 35.4% (36.0-47.0) L Mean Corpuscular Volume 94fL (79-100) Mean Corpuscular Hemoglobin 31pg (25-35) Mean Corpuscular Hemoglobin Concent 33g/dL (31-37) Red Cell Distribution Width 15.2% (11.5-14.5) H Platelet Count 198x10^3/uL (140-400) Neutrophils (%) (Auto) 43% (31-73) Lymphocytes (%) (Auto) 41% (24-48) Monocytes (%) (Auto) 12% (0-9) H Eosinophils (%) (Auto) 4% (0-3) H Basophils (%) (Auto) 1% (0-3) Neutrophils # (Auto) 2.4x10^3uL (1.8-7.7) Lymphocytes # (Auto) 2.2x10^3/uL (1.0-4.8) Monocytes # (Auto) 0.6x10^3/uL (0.0-1.1) Eosinophils # (Auto) 0.2x10^3/uL (0.0-0.7) Basophils # (Auto) 0.0x10^3/uL (0.0-0.2) Sodium Level 145mmol/L (136-145) Potassium Level 3.7mmol/L (3.5-5.1) Chloride Level 107mmol/L (98-107) Carbon Dioxide Level 32mmol/L (21-32) Anion Gap 6 (6-14) Blood Urea Nitrogen 31mg/dL (7-20) H Creatinine 0.9mg/dL (0.6-1.0) Estimated GFR (Cockcroft-Gault) 59.9 BUN/Creatinine Ratio 34 (6-20) H Glucose Level 84mg/dL (70-99) Calcium Level 9.5mg/dL (8.5-10.1) Total Bilirubin 0.3mg/dL (0.2-1.0) Aspartate Amino Transferase (AST) 20U/L (15-37) Alanine Aminotransferase (ALT) 25U/L (14-59) Alkaline Phosphatase 85U/L (46-116) Total Protein 7.3g/dL (6.4-8.2) Albumin 3.5g/dL (3.4-5.0) Albumin/Globulin Ratio 0.9 (1.0-1.7) L Current Medications: Meds: Current Medications Ciprofloxacin (Cipro) 500 mg 1X ONCE PO Last administered on 11/21/16 17:38; Start 11/21/16 at 17:45; Stop 11/21/16 at 17:46; Status DC Acetaminophen (Tylenol) 650 mg PRN Q6HRS PRN PO PAIN / TEMP; Start 11/21/16 at 20:15 Multi-Ingredient Ointment (Analgesic [place]) 1 emerson PRN QID PRN TP MUSCLE PAIN; Start 11/21/16 at 20:15 Al Hydroxide/Mg Hydroxide (Mylanta Plus Xs) 15 ml PRN AFTMEALHC PRN PO DYSPEPSIA; Start 11/21/16 at 20:15 Magnesium Hydroxide (Milk Of Magnesia) 2,400 mg PRN QHS PRN PO CONSTIPATION; Start 11/21/16 at 20:15 Divalproex Sodium (Depakote Sprinkles) 625 mg QHS PO Last administered on t 19:16; Start 11/21/16 at 22:00; Stop 11/24/16 at 18:43; Status DC Memantine (Namenda) 10 mg BID PO Last administered on 11/26/16 19:51; Start at 09:00 Mirtazapine (Remeron) 15 mg QHS PO Last administered on 11/26/16 19:51; Start 11/21/16 at 22:00 Olanzapine (Zyprexa Zydis) 5 mg PRN QHS PRN PO PSYCHOSIS Last administered on 14:01; Start 11/21/16 at 22:00 Acetaminophen (Tylenol) 650 mg PRN Q6HRS PRN PO MILD PAIN / TEMP; Start at 06:30; Status Cancel Bisacodyl (Dulcolax Supp) 10 mg PRN DAILY PRN RC CONSTIPATION; Start 11/22/16 at 06:30 Calcium/Vitamin D (Oscal D 500mg/ 200uts) 1 tab DAILY PO Last administered on 08:50; Start 11/22/16 at 09:00 Vitamin D (Vitamin D3) 1,000 unit DAILY PO Last administered on 11/26/16 08:51 ; Start 11/22/16 at 09:00 Hydrocortisone Acetate (Anucort-Hc) 25 mg PRN QID PRN RC Hemmorhoids; Start at 06:30 Levothyroxine Sodium (Synthroid) 25 mcg DAILYAC PO Last administered on 06:31; Start 11/22/16 at 07:30; Stop 11/23/16 at 00:01; Status DC Polyethylene Glycol (miraLAX) 17 gm DAILY PO Last administered on 11/26/16 08: 50; Start 11/22/16 at 09:00 Senna/Docusate Sodium (Senna Plus) 1 tab BID PO Last administered on 11/26/16 19:51; Start 11/22/16 at 09:00 Tramadol HCl (Ultram) 50 mg PRN Q6HRS PRN PO MODERATE PAIN Last administered on 11/23/16 13:39; Start 11/22/16 at 06:30 Lactobacillus Acidophilus (Bacid, Pat-Bid) 2 tab DAILY PO Last administered on 11/26/16 08:50; Start 11/22/16 at 09:00 Cyanocobalamin (Vitamin B-12) 1,000 mcg DAILY PO Last administered on 08:51; Start 11/22/16 at 09:00 Non-Formulary Medication 2,400 mg PRN QHS PRN PO CONSTIPATION; Start 11/22/16 at 06:30; Status UNV Non-Formulary Medication 1 emerson PRN QID PRN TP PAIN; Start 11/22/16 at 06:30; Status UNV Fosfomycin Tromethamine (Monurol) 3 gm 1X ONCE PO ; Start 11/22/16 at 13:00; Stop 11/22/16 at 13:02; Status DC Sertraline HCl (Zoloft) 25 mg DAILY PO Last administered on 11/25/16 08:36; Start 11/23/16 at 09:00; Stop 11/26/16 at 08:59; Status DC Sertraline HCl (Zoloft) 50 mg DAILY PO Last administered on 11/26/16 08:53; Start 11/26/16 at 09:00 Levothyroxine Sodium (Synthroid) 25 mcg DAILY06 PO Last administered on 06:44; Start 11/23/16 at 06:00 Trazodone HCl (Desyrel) 50 mg PRN QHS PRN PO INSOMNIA; Start 11/23/16 at 10:45 ; Stop 11/25/16 at 18:31; Status DC Divalproex Sodium (Depakote Sprinkles) 250 mg DAILYWBKFT PO Last administered on 11/26/16 08:50; Start 11/25/16 at 08:00 Divalproex Sodium (Depakote Sprinkles) 500 mg HS PO Last administered on 19:51; Start 11/24/16 at 21:00 Melatonin 3 mg PRN QHS PRN PO INSOMNIA; Start 11/25/16 at 18:30 Active Scripts Active Reported Vitamin D3 (Cholecalciferol (Vitamin D3)) 1,000 Unit Tablet 1,000 Unit PO DAILY Tramadol Hcl (Tramadol HCl) 50 Mg Tablet 50 Mg PO PRN Q6HRS PRN Senna-Docusate Sodium Tablet (Sennosides/Docusate Sodium) 1 Each Tablet 1 Tab PO BID Polyethylene Glycol 3350 255 Gm Powder 17 Gm PO DAILY Calcium 500 + Vit D 200 Tablet (Calcium Carbonate/Vitamin D3) 1 Each Tablet 1 Tab PO DAILY Namenda (Memantine Hcl) 10 Mg Tablet 28 Mg PO DAILY Levothyroxine Sodium 25 Mcg Tablet 25 Mcg PO DAILYAC Fleet Enema (Na Phos,M-B/Na Phos,Di-Ba) 133 Ml Enema 133 Ml RC DAILY Bisacodyl 10 Mg Supp.rect 10 Mg RC PRN DAILY PRN Biofreeze (Menthol) 118 Ml Gel..ml. 1 [place] TP PRN QID PRN Anusol-Hc (Hydrocortisone Acetate) 25 Mg Supp.rect 25 Mg RC PRN QID PRN Align (Bifidobacterium Infantis) 4 Mg Capsule 4 Mg PO DAILY Acetaminophen 500 Mg Tablet 500 Mg PO QID Zyprexa Zydis (Olanzapine) 5 Mg Tab.rapdis 5 Mg PO QHS PRN Remeron (Mirtazapine) 15 Mg Tablet 15 Mg PO QHS Milk Of Magnesia (Magnesium Hydroxide) 2,400 Mg/10 Ml Oral.susp 2,400 Mg PO PRN QHS PRN Acetaminophen 500 Mg Tablet 650 Mg PO PRN Q6HRS PRN Depakote Sprinkle (Divalproex Sodium) 125 Mg Cap.sprink 625 Mg PO QHS B-12 (Cyanocobalamin (Vitamin B-12)) 500 Mcg Tablet 1,000 Mcg PO DAILY Diagnosis: Problems: (1) Dementia with behavioral disturbance (2) Anxiety disorder (3) Dementia in Alzheimer's disease with delusions (4) Dementia in Alzheimer's disease with depression (5) Dementia, vascular, with delusions (6) Dementia, vascular, with depression (7) Impulse control disorder ILIA BUCKNER MD Nov 26, 2016 21:10
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
--- NOTE | 2016-11-27 04:55 | NUR ---
Behavior Intervention Response and Plan: BIRP Note: Behavior: Assumed Care of patient, patient located in Day Room at shift change. Patient exhibited the following behavior , Compliant, Cooperative. Brief assessment on rounds of vital signs, medication needs, lab studies, and pain. Treatment plan problems Dementia with BD, Alteration in Mood and Fall Risk. Intervention: Patient assessed and the following interventions initiated safety checks 15 Minute Checks Cognitive Assessment , Head to toe Assessment , Medications. Response: After interactions and interventions patient responded in the following manner, Calm , Compliant ,Cooperative. Continue to assess behaviors and condition will continue to monitor throughout the shift as needed. 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 Continue to assess patient for changes in above assessment. Monitor for medication needs, pain, and safety concerns. Hourly rounding performed to ensure safe environment.
[2016-11-27] MEDS: LEVOTHYROXINE 25 MCG TABLET. PO SCH (06:16)
[2016-11-27 07:00] VITALS: BP 143/80
[2016-11-27] MEDS: CYANOCOBALAMIN (VITAMIN B-12) 1,000 MCG TABLET. PO SCH (09:06)
[2016-11-27] MEDS: DIVALPROEX 125 MG CAP.SPRINK PO SCH ×2 (09:06→20:00)
[2016-11-27] MEDS: SENNOSIDES/DOCUSATE 8.6/50MG TABLET. PO SCH ×2 (09:06→20:02)
[2016-11-27] MEDS: CALCIUM CARB/VIT D3 500/200 TABLET PO SCH (09:06)
[2016-11-27] MEDS: LACTOBACILLUS ACIDOPH & BULGAR 1 TABLET. PO SCH (09:06)
[2016-11-27] MEDS: POLYETHYLENE GLYCOL 3350 17 GM PACKET. PO SCH (09:06)
[2016-11-27] MEDS: CHOLECALCIFEROL (VITAMIN D3) 1,000 UNIT TABLET PO SCH (09:06)
[2016-11-27] MEDS: MEMANTINE 10 MG TABLET. PO SCH ×2 (09:06→20:01)
[2016-11-27] MEDS: SERTRALINE 25 MG TABLET. PO SCH (09:07)
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
--- NOTE | 2016-11-27 10:39 | NUR ---
Behavior Intervention Response and Plan: BIRP Note: Behavior: Assumed Care of patient, patient located in Day Room at shift change. Patient exhibited the following behavior anxious, agitated, combative, and confused. Brief assessment on rounds of vital signs, medication needs, lab studies, and pain. Treatment plan problems: Dementia with BD, alteration in Mood, Fall Risk . Intervention: Patient assessed and the following interventions initiated safety checks 15 Minute Checks Cognitive Assessment , Head to toe Assessment , Medications. Response: After interactions and interventions patient responded in the following manner, Calm , Compliant ,Cooperative. Continue to assess behaviors and condition will continue to monitor throughout the shift as needed. 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 Continue to assess patient for changes in above assessment. Monitor for medication needs, pain, and safety concerns. Hourly rounding performed to ensure safe environment.
[2016-11-27 11:42] LABS: BASO % 0 % (0-3); EOS # 0.2 x10^3/uL (0.0-0.7); EOS % 2 % (0-3); HEMATOCRIT 33.7 % (36.0-47.0); LYMPH # 1.8 x10^3/uL (1.0-4.8); LYMPH % 19 % (24-48); MEAN CORPUSCULAR HEMOGLOBIN 31 pg (25-35); MEAN CORPUSCULAR HGB CONC 33 g/dL (31-37); MEAN CORPUSCULAR VOLUME 94 fL (79-100); MONO # 1.3 x10^3/uL (0.0-1.1); MONO % 14 % (0-9); NEUT # 6.1 x10^3uL (1.8-7.7); NEUT % 64 % (31-73); PLATELET COUNT 194 x10^3/uL (140-400); RED BLOOD COUNT 3.58 x10^6/uL (3.50-5.40); RED CELL DISTRIBUTION WIDTH 14.8 % (11.5-14.5); WHITE BLOOD COUNT 9.5 x10^3/uL (4.0-11.0)
[2016-11-27 11:52] LABS: ALBUMIN 3.7 g/dL (3.4-5.0); CALCIUM 9.4 mg/dL (8.5-10.1); CREATININE 0.9 mg/dL (0.6-1.0); GFR 59.9; POTASSIUM 4.1 mmol/L (3.5-5.1); TOTAL BILIRUBIN 0.2 mg/dL (0.2-1.0); TOTAL PROTEIN 7.5 g/dL (6.4-8.2)
[2016-11-27 12:03] LABS: VAL ACID 87 mcg/mL (50-100)
--- NOTE | 2016-11-27 13:14 | PN ---
DATE: 11/23/2016 SUBJECTIVE: This is a late entry 11/23/2016, cover elements not covered in my initial note. The patient was staffed at a treatment team meeting morning of 11/23/2016; seen individually evening of 11/23/2016. Discussed with staff and reviewed the chart. The patient slept 2-1/2 hours. Appetite about 65% of each meal, resistive to care, restless, irritable, labile, confused per nursing report. REVIEW OF SYSTEMS: No CV, , pulmonary, eye, or ENT system symptoms on review. Reliability poor. MENTAL STATUS EXAM: Oriented to herself. Insight, judgment, recent and remote memory, attention, concentration, fund of knowledge poor, consistent with her diagnosis mentioned in my initial note. IMPRESSION: Major neurocognitive disorder, Alzheimer, vascular with depression, delusion, behavioral disturbance; anxiety disorder, unspecified; and impulse control disorder, unspecified. PLAN: Maintain Namenda 10 mg b.i.d., Depakote 625 mg at bedtime, level is 41. Despite being subtherapeutic, it seems clinically adequate for now. Trazodone will be added 50 mg at bedtime p.r.n. may repeat x 1 for insomnia, Remeron 15 mg at bedtime, Zyprexa p.r.n., and Zoloft increasing to 50 mg a day. Adjust further as clinically indicated. ILIA BUCKNER MD DR: KAYDEN/francesca JOB#: [id number] / [id number]
[2016-11-27 13:38] LABS: % BANDS 4 % (0-9); % BASOS 1 % (0-3); % EOS 2 % (0-5); % LYMPHS 18 % (24-48); % MONOS 12 % (0-10); % SEGS 63 % (35-66)
[2016-11-27 13:39] LABS: PLT ESTIMATE ADEQUATE (ADEQUATE)
[2016-11-27 13:41] LABS: OVALOCYTES OCC; POLYCHROMASIA SLIGHT
[2016-11-27 16:14] VITALS: BP 140/81
[2016-11-27] MEDS: MIRTAZAPINE 15 MG TABLET PO SCH (20:00)
[2016-11-27] MEDS: QUEtiapine 25 MG TABLET. PO SCH (20:01)
--- NOTE | 2016-11-27 23:04 | NUR ---
Behavior Intervention Response and Plan: BIRP Note: Behavior: Assumed Care of patient, patient located in Day Room at shift change. Patient exhibited the following behavior calm,compliant, and confused. Brief assessment on rounds of vital signs, medication needs, lab studies, and pain. Treatment plan problems: 1-2 Intervention: Patient assessed and the following interventions initiated safety checks 15 Minute Checks Cognitive Assessment , Head to toe Assessment , Medications. Response: After interactions and interventions patient responded in the following manner, Calm , Compliant ,drowsy. Continue to assess behaviors and condition will continue to monitor throughout the shift as needed. 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 Continue to assess patient for changes in above assessment. Monitor for medication needs, pain, and safety concerns. Hourly rounding performed to ensure safe environment.
--- NOTE | 2016-11-27 23:49 | PDOC ---
Exam Tristin Demential Exam: Tristin Note: Please also refer to the separate dictated note~for this date of service dictated separately.~Patient seen individually. Discussed the patient with Nursing staff reviewed the chart.~Reviewed interim history and current functioning. Reviewed vital signs,~Labs/ Radiology~and current medications noted below. Continue current treatment with the changes noted in the dictated addendum note Assessment: Vital Signs: Vital Signs Date Time Temp Pulse Resp B/P Pulse Ox O2 Delivery O2 Flow Rate FiO2 11/27/16 16:14 97.9 73 18 140/81 92 11/25/16 06:32 Room Air I&O Intake and Output 11/27/16 07:00 Intake Total 960 ml Balance 960 ml Intake Oral 960 ml Labs: Laboratory Tests Test 11/27/16 11:30 White Blood Count 9.5x10^3/uL (4.0-11.0) # Red Blood Count 3.58x10^6/uL (3.50-5.40) Hemoglobin 11.0g/dL (12.0-15.5) L Hematocrit 33.7% (36.0-47.0) L Mean Corpuscular Volume 94fL (79-100) Mean Corpuscular Hemoglobin 31pg (25-35) Mean Corpuscular Hemoglobin Concent 33g/dL (31-37) Red Cell Distribution Width 14.8% (11.5-14.5) H Platelet Count 194x10^3/uL (140-400) Neutrophils (%) (Auto) 64% (31-73) Lymphocytes (%) (Auto) 19% (24-48) L Monocytes (%) (Auto) 14% (0-9) H Eosinophils (%) (Auto) 2% (0-3) Basophils (%) (Auto) 0% (0-3) Neutrophils # (Auto) 6.1x10^3uL (1.8-7.7) Lymphocytes # (Auto) 1.8x10^3/uL (1.0-4.8) Monocytes # (Auto) 1.3x10^3/uL (0.0-1.1) H Eosinophils # (Auto) 0.2x10^3/uL (0.0-0.7) Basophils # (Auto) 0.0x10^3/uL (0.0-0.2) Segmented Neutrophils % 63% (35-66) Band Neutrophils % 4% (0-9) Lymphocytes % 18% (24-48) L Monocytes % 12% (0-10) H Eosinophils % 2% (0-5) Basophils % 1% (0-3) Platelet Estimate Adequate (ADEQUATE) Large Platelets Occ Polychromasia Slight Ovalocytes Occ Sodium Level 144mmol/L (136-145) Potassium Level 4.1mmol/L (3.5-5.1) Chloride Level 107mmol/L (98-107) Carbon Dioxide Level 34mmol/L (21-32) H Anion Gap 3 (6-14) L Blood Urea Nitrogen 38mg/dL (7-20) H Creatinine 0.9mg/dL (0.6-1.0) Estimated GFR (Cockcroft-Gault) 59.9 BUN/Creatinine Ratio 42 (6-20) H Glucose Level 88mg/dL (70-99) Calcium Level 9.4mg/dL (8.5-10.1) Total Bilirubin 0.2mg/dL (0.2-1.0) Aspartate Amino Transferase (AST) 19U/L (15-37) Alanine Aminotransferase (ALT) 23U/L (14-59) Alkaline Phosphatase 84U/L (46-116) Total Protein 7.5g/dL (6.4-8.2) Albumin 3.7g/dL (3.4-5.0) Albumin/Globulin Ratio 1.0 (1.0-1.7) Valproic Acid Level 87mcg/mL (50-100) Valproic Acid Last Dose Date 11/27/16 Valproic Acid Last Dose Time 0900 Current Medications: Meds: Current Medications Ciprofloxacin (Cipro) 500 mg 1X ONCE PO Last administered on 11/21/16t 17:38; Start 11/21/16 at 17:45; Stop 11/21/16 at 17:46; Status DC Acetaminophen (Tylenol) 650 mg PRN Q6HRS PRN PO PAIN / TEMP; Start 11/21/16 at 20:15 Multi-Ingredient Ointment (Analgesic [place]) 1 emerson PRN QID PRN TP MUSCLE PAIN; Start 11/21/16 at 20:15 Al Hydroxide/Mg Hydroxide (Mylanta Plus Xs) 15 ml PRN AFTMEALHC PRN PO DYSPEPSIA; Start 11/21/16 at 20:15 Magnesium Hydroxide (Milk Of Magnesia) 2,400 mg PRN QHS PRN PO CONSTIPATION; Start 11/21/16 at 20:15 Divalproex Sodium (Depakote Sprinkles) 625 mg QHS PO Last administered on 19:16; Start 11/21/16 at 22:00; Stop 11/24/16 at 18:43; Status DC Memantine (Namenda) 10 mg BID PO Last administered on 11/27/16 20:01; Start at 09:00 Mirtazapine (Remeron) 15 mg QHS PO Last administered on 11/27/16 20:00; Start 11/21/16 at 22:00 Olanzapine (Zyprexa Zydis) 5 mg PRN QHS PRN PO PSYCHOSIS Last administered on 14:01; Start 11/21/16 at 22:00 Acetaminophen (Tylenol) 650 mg PRN Q6HRS PRN PO MILD PAIN / TEMP; Start at 06:30; Status Cancel Bisacodyl (Dulcolax Supp) 10 mg PRN DAILY PRN RC CONSTIPATION; Start 11/22/16 at 06:30 Calcium/Vitamin D (Oscal D 500mg/ 200uts) 1 tab DAILY PO Last administered on 09:06; Start 11/22/16 at 09:00 Vitamin D (Vitamin D3) 1,000 unit DAILY PO Last administered on 11/27/16 09:06 ; Start 11/22/16 at 09:00 Hydrocortisone Acetate (Anucort-Hc) 25 mg PRN QID PRN RC Hemmorhoids; Start at 06:30 Levothyroxine Sodium (Synthroid) 25 mcg DAILYAC PO Last administered on 06:31; Start 11/22/16 at 07:30; Stop 11/23/16 at 00:01; Status DC Polyethylene Glycol (miraLAX) 17 gm DAILY PO Last administered on 11/27/16 09: 06; Start 11/22/16 at 09:00 Senna/Docusate Sodium (Senna Plus) 1 tab BID PO Last administered on 11/27/16 09:06; Start 11/22/16 at 09:00 Tramadol HCl (Ultram) 50 mg PRN Q6HRS PRN PO MODERATE PAIN Last administered on 11/23/16 13:39; Start 11/22/16 at 06:30 Lactobacillus Acidophilus (Bacid, Pat-Bid) 2 tab DAILY PO Last administered on 11/27/16 09:06; Start 11/22/16 at 09:00 Cyanocobalamin (Vitamin B-12) 1,000 mcg DAILY PO Last administered on 09:06; Start 11/22/16 at 09:00 Non-Formulary Medication 2,400 mg PRN QHS PRN PO CONSTIPATION; Start 11/22/16 at 06:30; Status UNV Non-Formulary Medication 1 emerson PRN QID PRN TP PAIN; Start 11/22/16 at 06:30; Status UNV Fosfomycin Tromethamine (Monurol) 3 gm 1X ONCE PO ; Start 11/22/16 at 13:00; Stop 11/22/16 at 13:02; Status DC Sertraline HCl (Zoloft) 25 mg DAILY PO Last administered on 11/25/16 08:36; Start 11/23/16 at 09:00; Stop 11/26/16 at 08:59; Status DC Sertraline HCl (Zoloft) 50 mg DAILY PO Last administered on 11/27/16 09:07; Start 11/26/16 at 09:00 Levothyroxine Sodium (Synthroid) 25 mcg DAILY06 PO Last administered on 06:16; Start 11/23/16 at 06:00 Trazodone HCl (Desyrel) 50 mg PRN QHS PRN PO INSOMNIA; Start 11/23/16 at 10:45 ; Stop 11/25/16 at 18:31; Status DC Divalproex Sodium (Depakote Sprinkles) 250 mg DAILYWBKFT PO Last administered on 11/27/16 09:06; Start 11/25/16 at 08:00 Divalproex Sodium (Depakote Sprinkles) 500 mg HS PO Last administered on 20:00; Start 11/24/16 at 21:00 Melatonin 3 mg PRN QHS PRN PO INSOMNIA; Start 11/25/16 at 18:30 Quetiapine Fumarate (SEROquel) 25 mg QHS PO Last administered on 11/27/16t 20: 01; Start 11/27/16 at 21:00 Active Scripts Active Reported Vitamin D3 (Cholecalciferol (Vitamin D3)) 1,000 Unit Tablet 1,000 Unit PO DAILY Tramadol Hcl (Tramadol HCl) 50 Mg Tablet 50 Mg PO PRN Q6HRS PRN Senna-Docusate Sodium Tablet (Sennosides/Docusate Sodium) 1 Each Tablet 1 Tab PO BID Polyethylene Glycol 3350 255 Gm Powder 17 Gm PO DAILY Calcium 500 + Vit D 200 Tablet (Calcium Carbonate/Vitamin D3) 1 Each Tablet 1 Tab PO DAILY Namenda (Memantine Hcl) 10 Mg Tablet 28 Mg PO DAILY Levothyroxine Sodium 25 Mcg Tablet 25 Mcg PO DAILYAC Fleet Enema (Na Phos,M-B/Na Phos,Di-Ba) 133 Ml Enema 133 Ml RC DAILY Bisacodyl 10 Mg Supp.rect 10 Mg RC PRN DAILY PRN Biofreeze (Menthol) 118 Ml Gel..ml. 1 Emerson TP PRN QID PRN Anusol-Hc (Hydrocortisone Acetate) 25 Mg Supp.rect 25 Mg RC PRN QID PRN Align (Bifidobacterium Infantis) 4 Mg Capsule 4 Mg PO DAILY Acetaminophen 500 Mg Tablet 500 Mg PO QID Zyprexa Zydis (Olanzapine) 5 Mg Tab.rapdis 5 Mg PO QHS PRN Remeron (Mirtazapine) 15 Mg Tablet 15 Mg PO QHS Milk Of Magnesia (Magnesium Hydroxide) 2,400 Mg/10 Ml Oral.susp 2,400 Mg PO PRN QHS PRN Acetaminophen 500 Mg Tablet 650 Mg PO PRN Q6HRS PRN Depakote Sprinkle (Divalproex Sodium) 125 Mg Cap.sprink 625 Mg PO QHS B-12 (Cyanocobalamin (Vitamin B-12)) 500 Mcg Tablet 1,000 Mcg PO DAILY Diagnosis: Problems: (1) Dementia with behavioral disturbance (2) Anxiety disorder (3) Dementia in Alzheimer's disease with delusions (4) Dementia in Alzheimer's disease with depression (5) Dementia, vascular, with delusions (6) Dementia, vascular, with depression (7) Impulse control disorder ILIA BUCKNER MD Nov 27, 2016 23:49
[2016-11-28] MEDS: LEVOTHYROXINE 25 MCG TABLET. PO SCH (05:39)
[2016-11-28 06:22] VITALS: BP 99/60
--- NOTE | 2016-11-28 08:52 | PN ---
DATE: PSYCHIATRIC PROGRESS NOTE This is late entry of 11/26/2016, covers elements not covered in my initial note. SUBJECTIVE: Per nursing report, the patient continues to have some intermittent hallucinations. She had a good day till 14:30, then became agitated, anxious with hallucinations noted, remains confused. REVIEW OF SYSTEMS: No CV, , pulmonary, eye, ENT system symptoms on review. Reliability poor. MENTAL STATUS EXAMINATION: Oriented to herself. Insight, judgment, recent and remote memory, attention, concentration, fund of knowledge poor, consistent with her diagnosis. LABORATORY DATA: Reviewed. IMPRESSION: Major neurocognitive disorder, Alzheimer, vascular with delusion, depression, behavioral disturbance; anxiety disorder, unspecified; impulse control disorder, unspecified. PLAN: Continue Namenda, Depakote, Remeron, Zyprexa p.r.n., Zoloft increasing to 50 mg a day, trazodone, melatonin. Valproic acid level is 41, despite being slightly subtherapeutic clinically adequate for now. We will start to schedule Seroquel 25 mg at bedtime. ILIA BUCKNER MD DR: KAYDEN/francesca JOB#: [id number] / [id number]
--- NOTE | 2016-11-28 10:00 | NUR ---
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
[2016-11-28] MEDS: POLYETHYLENE GLYCOL 3350 17 GM PACKET. PO SCH (10:16)
[2016-11-28] MEDS: LACTOBACILLUS ACIDOPH & BULGAR 1 TABLET. PO SCH (10:17)
[2016-11-28] MEDS: DIVALPROEX 125 MG CAP.SPRINK PO SCH ×2 (10:17→21:27)
[2016-11-28] MEDS: CYANOCOBALAMIN (VITAMIN B-12) 1,000 MCG TABLET. PO SCH (10:17)
[2016-11-28] MEDS: SERTRALINE 25 MG TABLET. PO SCH (10:17)
[2016-11-28] MEDS: CHOLECALCIFEROL (VITAMIN D3) 1,000 UNIT TABLET PO SCH (10:17)
[2016-11-28] MEDS: CALCIUM CARB/VIT D3 500/200 TABLET PO SCH (10:18)
[2016-11-28] MEDS: MEMANTINE 10 MG TABLET. PO SCH ×2 (10:18→21:26)
[2016-11-28] MEDS: SENNOSIDES/DOCUSATE 8.6/50MG TABLET. PO SCH ×2 (10:18→21:26)
--- NOTE | 2016-11-28 10:18 | NUR ---
Case Management Note Updated Clinical information faxed to Delilah Rodas, , fax confirmation obtained. Will follow for continued stay and or discharge planning.
--- NOTE | 2016-11-28 11:15 | NUR ---
THERAPEUTIC RECREATION GROUP NOTE TITLE :Movement to Music: Flexibility ACTIVITY : Movement/ Exercise GOAL : Increase morale, attention, flexibility. Decrease stress/anxiety. DURATION : 40 Minutes RESPONSE : No participation. Working with PT
--- NOTE | 2016-11-28 14:00 | NUR ---
THERAPEUTIC RECREATION GROUP NOTE TITLE :Sing along with Nikki ACTIVITY : Music GOAL : Increase socialization, elevate mood, stimulate memory DURATION : 60 Minutes RESPONSE : Minimal participation. Pt. sat with the group the entire time and occasionally followed along with lyrics sheet. She did not sing but was polite.
--- NOTE | 2016-11-28 14:00 | NUR ---
Behavior Intervention Response and Plan: BIRP Note: Behavior: Assumed Care of patient, patient located in Hallway at shift change. Patient exhibited the following behavior Calm, Disorganized, Cooperative. Brief assessment on rounds of vital signs, medication needs, lab studies, and pain. Treatment plan problems . Intervention: Patient assessed and the following interventions initiated safety checks 15 Minute Checks Call rockwell in reach , Medications , Oral Hydration. Response: After interactions and interventions patient responded in the following manner, Calm , Disorganized ,Cooperative. Continue to assess behaviors and condition will continue to monitor throughout the shift as needed. Plan: Continue to monitor Master Treatment Plan for patient's progress toward short term goals of Decreased Agitation, Decreased Anxiety, retirement goals to return to previous living setting vs placement. Continue to assess patient for changes in above assessment. Monitor for medication needs, pain, and safety concerns. Hourly rounding performed to ensure safe environment.
[2016-11-28 16:24] VITALS: BP 135/76
[2016-11-28] MEDS: MIRTAZAPINE 15 MG TABLET PO SCH (21:26)
[2016-11-28] MEDS: QUEtiapine 25 MG TABLET. PO SCH (21:26)
--- NOTE | 2016-11-28 21:47 | PDOC ---
Exam Tristin Demential Exam: Tristin Note: Please also refer to the separate dictated note~for this date of service dictated separately.~Patient seen individually. Discussed the patient with Nursing staff reviewed the chart.~Reviewed interim history and current functioning. Reviewed vital signs,~Labs/ Radiology~and current medications noted below. Continue current treatment with the changes noted in the dictated addendum note Assessment: Vital Signs: Vital Signs Date Time Temp Pulse Resp B/P Pulse Ox O2 Delivery O2 Flow Rate FiO2 11/28/16 16:24 97.6 68 18 135/76 99 11/25/16 06:32 Room Air I&O Intake and Output 11/28/16 07:00 Intake Total 480 ml Balance 480 ml Intake Oral 480 ml Current Medications: Meds: Current Medications Ciprofloxacin (Cipro) 500 mg 1X ONCE PO Last administered on 11/21/16 17:38; Start 11/21/16 at 17:45; Stop 11/21/16 at 17:46; Status DC Acetaminophen (Tylenol) 650 mg PRN Q6HRS PRN PO PAIN / TEMP; Start 11/21/16 at 20:15 Multi-Ingredient Ointment (Analgesic [place]) 1 emerson PRN QID PRN TP MUSCLE PAIN; Start 11/21/16 at 20:15 Al Hydroxide/Mg Hydroxide (Mylanta Plus Xs) 15 ml PRN AFTMEALHC PRN PO DYSPEPSIA; Start 11/21/16 at 20:15 Magnesium Hydroxide (Milk Of Magnesia) 2,400 mg PRN QHS PRN PO CONSTIPATION; Start 11/21/16 at 20:15 Divalproex Sodium (Depakote Sprinkles) 625 mg QHS PO Last administered on 19:16; Start 11/21/16 at 22:00; Stop 11/24/16 at 18:43; Status DC Memantine (Namenda) 10 mg BID PO Last administered on 11/28/16 21:26; Start at 09:00 Mirtazapine (Remeron) 15 mg QHS PO Last administered on 11/28/16 21:26; Start 11/21/16 at 22:00 Olanzapine (Zyprexa Zydis) 5 mg PRN QHS PRN PO PSYCHOSIS Last administered on 14:01; Start 11/21/16 at 22:00 Acetaminophen (Tylenol) 650 mg PRN Q6HRS PRN PO MILD PAIN / TEMP; Start at 06:30; Status Cancel Bisacodyl (Dulcolax Supp) 10 mg PRN DAILY PRN RC CONSTIPATION; Start 11/22/16 at 06:30 Calcium/Vitamin D (Oscal D 500mg/ 200uts) 1 tab DAILY PO Last administered on 10:18; Start 11/22/16 at 09:00 Vitamin D (Vitamin D3) 1,000 unit DAILY PO Last administered on 11/28/16 10:17 ; Start 11/22/16 at 09:00 Hydrocortisone Acetate (Anucort-Hc) 25 mg PRN QID PRN RC Hemmorhoids; Start at 06:30 Levothyroxine Sodium (Synthroid) 25 mcg DAILYAC PO Last administered on 06:31; Start 11/22/16 at 07:30; Stop 11/23/16 at 00:01; Status DC Polyethylene Glycol (miraLAX) 17 gm DAILY PO Last administered on 11/28/16 10: 16; Start 11/22/16 at 09:00 Senna/Docusate Sodium (Senna Plus) 1 tab BID PO Last administered on 11/28/16 21:26; Start 11/22/16 at 09:00 Tramadol HCl (Ultram) 50 mg PRN Q6HRS PRN PO MODERATE PAIN Last administered on 11/23/16 13:39; Start 11/22/16 at 06:30 Lactobacillus Acidophilus (Bacid, Pat-Bid) 2 tab DAILY PO Last administered on 11/28/16 10:17; Start 11/22/16 at 09:00 Cyanocobalamin (Vitamin B-12) 1,000 mcg DAILY PO Last administered on 10:17; Start 11/22/16 at 09:00 Non-Formulary Medication 2,400 mg PRN QHS PRN PO CONSTIPATION; Start 11/22/16 at 06:30; Status UNV Non-Formulary Medication 1 emerson PRN QID PRN TP PAIN; Start 11/22/16 at 06:30; Status UNV Fosfomycin Tromethamine (Monurol) 3 gm 1X ONCE PO ; Start 11/22/16 at 13:00; Stop 11/22/16 at 13:02; Status DC Sertraline HCl (Zoloft) 25 mg DAILY PO Last administered on 11/25/16 08:36; Start 11/23/16 at 09:00; Stop 11/26/16 at 08:59; Status DC Sertraline HCl (Zoloft) 50 mg DAILY PO Last administered on 11/28/16 10:17; Start 11/26/16 at 09:00; Stop 11/28/16 at 19:12; Status DC Levothyroxine Sodium (Synthroid) 25 mcg DAILY06 PO Last administered on 05:39; Start 11/23/16 at 06:00 Trazodone HCl (Desyrel) 50 mg PRN QHS PRN PO INSOMNIA; Start 11/23/16 at 10:45 ; Stop 11/25/16 at 18:31; Status DC Divalproex Sodium (Depakote Sprinkles) 250 mg DAILYWBKFT PO Last administered on 11/28/16 10:17; Start 11/25/16 at 08:00 Divalproex Sodium (Depakote Sprinkles) 500 mg HS PO Last administered on 21:27; Start 11/24/16 at 21:00 Melatonin 3 mg PRN QHS PRN PO INSOMNIA; Start 11/25/16 at 18:30 Quetiapine Fumarate (SEROquel) 25 mg QHS PO Last administered on 11/28/16 21: 26; Start 11/27/16 at 21:00 Sertraline HCl (Zoloft) 75 mg DAILY PO ; Start 11/29/16 at 09:00 Active Scripts Active Reported Vitamin D3 (Cholecalciferol (Vitamin D3)) 1,000 Unit Tablet 1,000 Unit PO DAILY Tramadol Hcl (Tramadol HCl) 50 Mg Tablet 50 Mg PO PRN Q6HRS PRN Senna-Docusate Sodium Tablet (Sennosides/Docusate Sodium) 1 Each Tablet 1 Tab PO BID Polyethylene Glycol 3350 255 Gm Powder 17 Gm PO DAILY Calcium 500 + Vit D 200 Tablet (Calcium Carbonate/Vitamin D3) 1 Each Tablet 1 Tab PO DAILY Namenda (Memantine Hcl) 10 Mg Tablet 28 Mg PO DAILY Levothyroxine Sodium 25 Mcg Tablet 25 Mcg PO DAILYAC Fleet Enema (Na Phos,M-B/Na Phos,Di-Ba) 133 Ml Enema 133 Ml RC DAILY Bisacodyl 10 Mg Supp.rect 10 Mg RC PRN DAILY PRN Biofreeze (Menthol) 118 Ml Gel..ml. 1 [place] TP PRN QID PRN Anusol-Hc (Hydrocortisone Acetate) 25 Mg Supp.rect 25 Mg RC PRN QID PRN Align (Bifidobacterium Infantis) 4 Mg Capsule 4 Mg PO DAILY Acetaminophen 500 Mg Tablet 500 Mg PO QID Zyprexa Zydis (Olanzapine) 5 Mg Tab.rapdis 5 Mg PO QHS PRN Remeron (Mirtazapine) 15 Mg Tablet 15 Mg PO QHS Milk Of Magnesia (Magnesium Hydroxide) 2,400 Mg/10 Ml Oral.susp 2,400 Mg PO PRN QHS PRN Acetaminophen 500 Mg Tablet 650 Mg PO PRN Q6HRS PRN Depakote Sprinkle (Divalproex Sodium) 125 Mg Cap.sprink 625 Mg PO QHS B-12 (Cyanocobalamin (Vitamin B-12)) 500 Mcg Tablet 1,000 Mcg PO DAILY Diagnosis: Problems: (1) Dementia with behavioral disturbance (2) Anxiety disorder (3) Dementia in Alzheimer's disease with delusions (4) Dementia in Alzheimer's disease with depression (5) Dementia, vascular, with delusions (6) Dementia, vascular, with depression (7) Impulse control disorder ILIA BUCKNER MD Nov 28, 2016 21:47
--- NOTE | 2016-11-29 04:02 | PN ---
DATE: PSYCHIATRIC PROGRESS NOTE This is a late entry for 11/27/2016, covers the elements not covered in my initial note. SUBJECTIVE: The patient remains confused, did well the previous night. Morning of 11/27/2016 she urinated on the floor, sexually inappropriate, grabbing at female nursing staff breast area per nursing report, threw water at the nursing staff, agitated, combative while changing her brief. REVIEW OF SYSTEMS: No CV, , pulmonary, eye, ENT system symptoms on review. Reliability poor. MENTAL STATUS EXAM: Oriented to herself. Insight, judgment, recent and remote memory, attention, concentration, fund of knowledge poor, consistent with her diagnosis mentioned in my initial note. IMPRESSION: Major neurocognitive disorder, Alzheimer, vascular with depression, delusions and behavioral disturbances. Rest unchanged. PLAN: Continue Namenda, Depakote, Remeron, Zyprexa p.r.n., Zoloft, trazodone p.r.n., melatonin and Seroquel 50 at bedtime. Valproic acid level is 41. If mood lability persists, we may need to increase the Depakote. MAN Zabrina BUCKNER MD DR: KAYDEN/francesca JOB#: [id number] / [id number]
[2016-11-29] MEDS: LEVOTHYROXINE 25 MCG TABLET. PO SCH (05:56)
[2016-11-29 06:34] VITALS: BP 166/76
--- NOTE | 2016-11-29 06:44 | NUR ---
Behavior Intervention Response and Plan: BIRP Note: Behavior: Assumed Care of patient, patient located in Patient Room at shift change. Patient exhibited the following behavior Compliant, Cooperative, Wandering. Brief assessment on rounds of vital signs, medication needs, lab studies, and pain. Treatment plan problems 1-2. Intervention: Patient assessed and the following interventions initiated safety checks 15 Minute Checks Cognitive Assessment , Medications , Oral Hydration. Response: After interactions and interventions patient responded in the following manner, Restless , Wandering ,Compliant. Continue to assess behaviors and condition will continue to monitor throughout the shift as needed. 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 Continue to assess patient for changes in above assessment. Monitor for medication needs, pain, and safety concerns. Hourly rounding performed to ensure safe environment.
[2016-11-29] MEDS: CYANOCOBALAMIN (VITAMIN B-12) 1,000 MCG TABLET. PO SCH (09:14)
[2016-11-29] MEDS: CALCIUM CARB/VIT D3 500/200 TABLET PO SCH (09:14)
[2016-11-29] MEDS: LACTOBACILLUS ACIDOPH & BULGAR 1 TABLET. PO SCH (09:14)
[2016-11-29] MEDS: SENNOSIDES/DOCUSATE 8.6/50MG TABLET. PO SCH ×2 (09:14→20:28)
[2016-11-29] MEDS: POLYETHYLENE GLYCOL 3350 17 GM PACKET. PO SCH (09:14)
[2016-11-29] MEDS: DIVALPROEX 125 MG CAP.SPRINK PO SCH ×2 (09:15→20:28)
[2016-11-29] MEDS: MEMANTINE 10 MG TABLET. PO SCH ×2 (09:15→20:28)
[2016-11-29] MEDS: CHOLECALCIFEROL (VITAMIN D3) 1,000 UNIT TABLET PO SCH (09:16)
[2016-11-29] MEDS: SERTRALINE 25 MG TABLET. PO SCH (09:20)
[2016-11-29 10:40] LABS: BILIRUBIN,URINE NEG (NEG); CLARITY,URINE TURBID; COLOR,URINE YELLOW; GLUCOSE,URINE NEG (NEG); NITRITE,URINE NEG (NEG); UROBILINOGEN,URINE 0.2 mg/dL (0.2 mg/dL); WBC,URINE >40 /HPF (0-4)
[2016-11-29 10:41] LABS: BACTERIA,URINE MANY /HPF (0-FEW); SQUAMOUS EPITHELIAL CELL,UR FEW /LPF
[2016-11-29 15:58] VITALS: BP 116/75
--- NOTE | 2016-11-29 16:00 | NUR ---
Behavior Intervention Response and Plan: BIRP Note: Behavior: Assumed Care of patient, patient located in Day Room at shift change. Patient exhibited the following behavior Calm, Disorganized, Compliant. Brief assessment on rounds of vital signs, medication needs, lab studies, and pain. Treatment plan problems . Intervention: Patient assessed and the following interventions initiated safety checks 15 Minute Checks Call rockwell in reach , Medications , Personal Alarm in place. Response: After interactions and interventions patient responded in the following manner, Calm , Disorganized ,Compliant. Continue to assess behaviors and condition will continue to monitor throughout the shift as needed. Plan: Continue to monitor Master Treatment Plan for patient's progress toward short term goals of Decreased Agitation, Decreased Anxiety, custodial goals to return to previous living setting vs placement. Continue to assess patient for changes in above assessment. Monitor for medication needs, pain, and safety concerns. Hourly rounding performed to ensure safe environment.
[2016-11-29] MEDS: MIRTAZAPINE 15 MG TABLET PO SCH (20:28)
[2016-11-29] MEDS: QUEtiapine 25 MG TABLET. PO SCH (20:28)
--- NOTE | 2016-11-29 21:13 | PDOC ---
Exam Tristin Demential Exam: Tristin Note: Please also refer to the separate dictated note~for this date of service dictated separately.~Patient seen individually. Discussed the patient with Nursing staff reviewed the chart.~Reviewed interim history and current functioning. Reviewed vital signs,~Labs/ Radiology~and current medications noted below. Continue current treatment with the changes noted in the dictated addendum note Assessment: Vital Signs: Vital Signs Date Time Temp Pulse Resp B/P Pulse Ox O2 Delivery O2 Flow Rate FiO2 11/29/16 15:58 97.5 64 20 116/75 98 11/25/16 06:32 Room Air I&O Intake and Output 11/29/16 07:00 Intake Total 600 ml Balance 600 ml Intake Oral 600 ml Labs: Laboratory Tests Test 11/29/16 10:00 Urine Collection Type Unknown Urine Color Yellow Urine Clarity Turbid Urine pH 7.5 Urine Specific [place] 1.020 Urine Protein 30 mg/dl (NEG-TRACE) Urine Glucose (UA) Negmg/dL (NEG) Urine Ketones (Stick) Negmg/dL (NEG) Urine Blood Small (NEG) Urine Nitrite Neg (NEG) Urine Bilirubin Neg (NEG) Urine Urobilinogen Dipstick 0.2mg/dL (0.2 mg/dL) Urine Leukocyte Esterase Large (NEG) Urine RBC 1-2/HPF (0-2) Urine WBC >40/HPF (0-4) Urine Squamous Epithelial Cells Few/LPF Urine Bacteria Many/HPF (0-FEW) Current Medications: Meds: Current Medications Ciprofloxacin (Cipro) 500 mg 1X ONCE PO Last administered on 11/21/16t 17:38; Start 11/21/16 at 17:45; Stop 11/21/16 at 17:46; Status DC Acetaminophen (Tylenol) 650 mg PRN Q6HRS PRN PO PAIN / TEMP; Start 11/21/16 at 20:15 Multi-Ingredient Ointment (Analgesic [place]) 1 emerson PRN QID PRN TP MUSCLE PAIN; Start 11/21/16 at 20:15 Al Hydroxide/Mg Hydroxide (Mylanta Plus Xs) 15 ml PRN AFTMEALHC PRN PO DYSPEPSIA; Start 11/21/16 at 20:15 Magnesium Hydroxide (Milk Of Magnesia) 2,400 mg PRN QHS PRN PO CONSTIPATION; Start 11/21/16 at 20:15 Divalproex Sodium (Depakote Sprinkles) 625 mg QHS PO Last administered on 19:16; Start 11/21/16 at 22:00; Stop 11/24/16 at 18:43; Status DC Memantine (Namenda) 10 mg BID PO Last administered on 11/29/16 20:28; Start at 09:00 Mirtazapine (Remeron) 15 mg QHS PO Last administered on 11/29/16 20:28; Start 11/21/16 at 22:00 Olanzapine (Zyprexa Zydis) 5 mg PRN QHS PRN PO PSYCHOSIS Last administered on 14:01; Start 11/21/16 at 22:00 Acetaminophen (Tylenol) 650 mg PRN Q6HRS PRN PO MILD PAIN / TEMP; Start at 06:30; Status Cancel Bisacodyl (Dulcolax Supp) 10 mg PRN DAILY PRN RC CONSTIPATION; Start 11/22/16 at 06:30 Calcium/Vitamin D (Oscal D 500mg/ 200uts) 1 tab DAILY PO Last administered on 09:14; Start 11/22/16 at 09:00 Vitamin D (Vitamin D3) 1,000 unit DAILY PO Last administered on 11/29/16 09:16 ; Start 11/22/16 at 09:00 Hydrocortisone Acetate (Anucort-Hc) 25 mg PRN QID PRN RC Hemmorhoids; Start at 06:30 Levothyroxine Sodium (Synthroid) 25 mcg DAILYAC PO Last administered on 06:31; Start 11/22/16 at 07:30; Stop 11/23/16 at 00:01; Status DC Polyethylene Glycol (miraLAX) 17 gm DAILY PO Last administered on 11/29/16 09: 14; Start 11/22/16 at 09:00 Senna/Docusate Sodium (Senna Plus) 1 tab BID PO Last administered on 11/29/16 20:28; Start 11/22/16 at 09:00 Tramadol HCl (Ultram) 50 mg PRN Q6HRS PRN PO MODERATE PAIN Last administered on 11/23/16 13:39; Start 11/22/16 at 06:30 Lactobacillus Acidophilus (Bacid, Pat-Bid) 2 tab DAILY PO Last administered on 11/29/16 09:14; Start 11/22/16 at 09:00 Cyanocobalamin (Vitamin B-12) 1,000 mcg DAILY PO Last administered on 09:14; Start 11/22/16 at 09:00 Non-Formulary Medication 2,400 mg PRN QHS PRN PO CONSTIPATION; Start 11/22/16 at 06:30; Status UNV Non-Formulary Medication 1 emerson PRN QID PRN TP PAIN; Start 11/22/16 at 06:30; Status UNV Fosfomycin Tromethamine (Monurol) 3 gm 1X ONCE PO ; Start 11/22/16 at 13:00; Stop 11/22/16 at 13:02; Status DC Sertraline HCl (Zoloft) 25 mg DAILY PO Last administered on 11/25/16 08:36; Start 11/23/16 at 09:00; Stop 11/26/16 at 08:59; Status DC Sertraline HCl (Zoloft) 50 mg DAILY PO Last administered on 11/28/16 10:17; Start 11/26/16 at 09:00; Stop 11/28/16 at 19:12; Status DC Levothyroxine Sodium (Synthroid) 25 mcg DAILY06 PO Last administered on 05:56; Start 11/23/16 at 06:00 Trazodone HCl (Desyrel) 50 mg PRN QHS PRN PO INSOMNIA; Start 11/23/16 at 10:45 ; Stop 11/25/16 at 18:31; Status DC Divalproex Sodium (Depakote Sprinkles) 250 mg DAILYWBKFT PO Last administered on 11/29/16 09:15; Start 11/25/16 at 08:00 Divalproex Sodium (Depakote Sprinkles) 500 mg HS PO Last administered on 20:28; Start 11/24/16 at 21:00 Melatonin 3 mg PRN QHS PRN PO INSOMNIA; Start 11/25/16 at 18:30 Quetiapine Fumarate (SEROquel) 25 mg QHS PO Last administered on 11/29/16 20: 28; Start 11/27/16 at 21:00 Sertraline HCl (Zoloft) 75 mg DAILY PO Last administered on 11/29/16 09:20; Start 11/29/16 at 09:00 Active Scripts Active Reported Vitamin D3 (Cholecalciferol (Vitamin D3)) 1,000 Unit Tablet 1,000 Unit PO DAILY Tramadol Hcl (Tramadol HCl) 50 Mg Tablet 50 Mg PO PRN Q6HRS PRN Senna-Docusate Sodium Tablet (Sennosides/Docusate Sodium) 1 Each Tablet 1 Tab PO BID Polyethylene Glycol 3350 255 Gm Powder 17 Gm PO DAILY Calcium 500 + Vit D 200 Tablet (Calcium Carbonate/Vitamin D3) 1 Each Tablet 1 Tab PO DAILY Namenda (Memantine Hcl) 10 Mg Tablet 28 Mg PO DAILY Levothyroxine Sodium 25 Mcg Tablet 25 Mcg PO DAILYAC Fleet Enema (Na Phos,M-B/Na Phos,Di-Ba) 133 Ml Enema 133 Ml RC DAILY Bisacodyl 10 Mg Supp.rect 10 Mg RC PRN DAILY PRN Biofreeze (Menthol) 118 Ml Gel..ml. 1 Emerson TP PRN QID PRN Anusol-Hc (Hydrocortisone Acetate) 25 Mg Supp.rect 25 Mg RC PRN QID PRN Align (Bifidobacterium Infantis) 4 Mg Capsule 4 Mg PO DAILY Acetaminophen 500 Mg Tablet 500 Mg PO QID Zyprexa Zydis (Olanzapine) 5 Mg Tab.rapdis 5 Mg PO QHS PRN Remeron (Mirtazapine) 15 Mg Tablet 15 Mg PO QHS Milk Of Magnesia (Magnesium Hydroxide) 2,400 Mg/10 Ml Oral.susp 2,400 Mg PO PRN QHS PRN Acetaminophen 500 Mg Tablet 650 Mg PO PRN Q6HRS PRN Depakote Sprinkle (Divalproex Sodium) 125 Mg Cap.sprink 625 Mg PO QHS B-12 (Cyanocobalamin (Vitamin B-12)) 500 Mcg Tablet 1,000 Mcg PO DAILY Diagnosis: Problems: (1) Dementia with behavioral disturbance (2) Anxiety disorder (3) Dementia in Alzheimer's disease with delusions (4) Dementia in Alzheimer's disease with depression (5) Dementia, vascular, with delusions (6) Dementia, vascular, with depression (7) Impulse control disorder ILIA BUCKNER MD Nov 29, 2016 21:13
--- NOTE | 2016-11-29 22:51 | NUR ---
Behavior Intervention Response and Plan: BIRP Note: Behavior: Assumed Care of patient, patient located in Day Room at shift change. Patient exhibited the following behavior Wandering, Restless, Compliant. Brief assessment on rounds of vital signs, medication needs, lab studies, and pain. Treatment plan problems Dementia w/BD, Alteration in mood and fall risk. Intervention: Patient assessed and the following interventions initiated safety checks 15 Minute Checks Cognitive Assessment , Medications , Oral Hydration. Response: After interactions and interventions patient responded in the following manner, Wandering , Calm ,Compliant. Continue to assess behaviors and condition will continue to monitor throughout the shift as needed. Plan: Continue to monitor Master Treatment Plan for patient's progress toward short term goals of Decreased Agitation, Decreased Aggression, bed bug exterminator goals to return to previous living setting vs placement. Continue to assess patient for changes in above assessment. Monitor for medication needs, pain, and safety concerns. Hourly rounding performed to ensure safe environment.
[2016-11-30] MEDS: LEVOTHYROXINE 25 MCG TABLET. PO SCH (06:29)
[2016-11-30 06:52] VITALS: BP 170/79
--- NOTE | 2016-11-30 09:43 | PN ---
DATE: 11/28/2016 PSYCHIATRIC PROGRESS NOTE This is a late entry for 11/28/2016, covers elements not covered in my initial note. SUBJECTIVE: Per nursing report, the patient remains confused, withdrawn. No longer in a Broda chair, takes her medications crushed. Still somewhat anxious, depressed. She is not aggressive. REVIEW OF SYSTEMS: No CV, , pulmonary, eye, ENT system symptoms on review. Reliability poor. MENTAL STATUS EXAM: Oriented to herself. Insight, judgment, recent and remote memory, attention, concentration, fund of knowledge poor, consistent with her diagnosis mentioned in my initial note. IMPRESSION: Major neurocognitive disorder, Alzheimer, vascular with depression, delusion, behavioral disturbance; anxiety disorder, unspecified; impulse control disorder, unspecified. PLAN: Increase Zoloft from 50 mg a day to 75 mg a day. Continue Namenda 10 mg b.i.d., Depakote 500 mg at bedtime and 250 in the morning, Remeron 15 mg at bedtime, Zyprexa p.r.n., trazodone p.r.n., melatonin p.r.n., Seroquel 50 mg at bedtime. Adjust further as clinically indicated. ILIA BUCKNER MD DR: KAYDEN/francesca JOB#: [id number] / [id number]
[2016-11-30] MEDS: CYANOCOBALAMIN (VITAMIN B-12) 1,000 MCG TABLET. PO SCH (10:31)
[2016-11-30] MEDS: CALCIUM CARB/VIT D3 500/200 TABLET PO SCH (10:31)
[2016-11-30] MEDS: LACTOBACILLUS ACIDOPH & BULGAR 1 TABLET. PO SCH (10:31)
[2016-11-30] MEDS: CHOLECALCIFEROL (VITAMIN D3) 1,000 UNIT TABLET PO SCH (10:31)
[2016-11-30] MEDS: MEMANTINE 10 MG TABLET. PO SCH ×2 (10:31→19:51)
[2016-11-30] MEDS: SERTRALINE 25 MG TABLET. PO SCH (10:31)
[2016-11-30] MEDS: SENNOSIDES/DOCUSATE 8.6/50MG TABLET. PO SCH ×2 (10:31→19:51)
[2016-11-30] MEDS: DIVALPROEX 125 MG CAP.SPRINK PO SCH ×2 (10:31→19:51)
[2016-11-30] MEDS: POLYETHYLENE GLYCOL 3350 17 GM PACKET. PO SCH (10:32)
--- NOTE | 2016-11-30 11:15 | NUR ---
THERAPEUTIC RECREATION GROUP NOTE TITLE :Movement to Music: Flexibility ACTIVITY : Movement/ Exercise GOAL : Increase morale, attention, flexibility. Decrease stress/anxiety. DURATION : 40 Minutes RESPONSE : No participation
--- NOTE | 2016-11-30 11:31 | NUR ---
Behavior Intervention Response and Plan: BIRP Note: Behavior: Assumed Care of patient, patient located in Patient Room at shift change. Patient exhibited the following behavior Disorganized, Anxious, Drowsy. Brief assessment on rounds of vital signs, medication needs, lab studies, and pain. Treatment plan problems . Intervention: Patient assessed and the following interventions initiated safety checks 15 Minute Checks Cognitive Assessment , Head to toe Assessment , Medications. Response: After interactions and interventions patient responded in the following manner, Disorganized , Anxious ,Cooperative. Continue to assess behaviors and condition will continue to monitor throughout the shift as needed. Plan: Continue to monitor Master Treatment Plan for patient's progress toward short term goals of Decreased Anxiety, Medication Compliance, terminal worker goals to return to previous living setting vs placement. Continue to assess patient for changes in above assessment. Monitor for medication needs, pain, and safety concerns. Hourly rounding performed to ensure safe environment.
--- NOTE | 2016-11-30 14:00 | NUR ---
THERAPEUTIC RECREATION GROUP NOTE TITLE :Balloon Bop with Noodles ACTIVITY : Activities and Games GOAL : Increase socialization and alertness. Maintain/improve mental and physical functioning. DURATION : 30 minutes RESPONSE : Minimal participation. Pt. placed the pool noodle next to her and hit the balloon a couple times with her hands. When the balloon was directly going to be passed to her, Pt. smiled and politely shook her head as she said "no." She stayed with the group the entire time.
[2016-11-30 15:52] VITALS: BP 127/69
[2016-11-30] MEDS: MIRTAZAPINE 15 MG TABLET PO SCH (19:51)
[2016-11-30] MEDS: QUEtiapine 25 MG TABLET. PO SCH (19:51)
--- NOTE | 2016-11-30 21:16 | PDOC ---
Exam Tristin Demential Exam: Tristin Note: Please also refer to the separate dictated note~for this date of service dictated separately.~Patient seen individually. Discussed the patient with Nursing staff reviewed the chart.~Reviewed interim history and current functioning. Reviewed vital signs,~Labs/ Radiology~and current medications noted below. Continue current treatment with the changes noted in the dictated addendum note Assessment: Vital Signs: Vital Signs Date Time Temp Pulse Resp B/P Pulse Ox O2 Delivery O2 Flow Rate FiO2 11/30/16 15:52 97.9 67 18 127/69 97 11/25/16 06:32 Room Air I&O Intake and Output 11/30/16 07:00 Intake Total 600 ml Balance 600 ml Intake Oral 600 ml Current Medications: Meds: Current Medications Ciprofloxacin (Cipro) 500 mg 1X ONCE PO Last administered on 11/21/16 17:38; Start 11/21/16 at 17:45; Stop 11/21/16 at 17:46; Status DC Acetaminophen (Tylenol) 650 mg PRN Q6HRS PRN PO PAIN / TEMP; Start 11/21/16 at 20:15 Multi-Ingredient Ointment (Analgesic [place]) 1 emerson PRN QID PRN TP MUSCLE PAIN; Start 11/21/16 at 20:15 Al Hydroxide/Mg Hydroxide (Mylanta Plus Xs) 15 ml PRN AFTMEALHC PRN PO DYSPEPSIA; Start 11/21/16 at 20:15 Magnesium Hydroxide (Milk Of Magnesia) 2,400 mg PRN QHS PRN PO CONSTIPATION; Start 11/21/16 at 20:15 Divalproex Sodium (Depakote Sprinkles) 625 mg QHS PO Last administered on 19:16; Start 11/21/16 at 22:00; Stop 11/24/16 at 18:43; Status DC Memantine (Namenda) 10 mg BID PO Last administered on 11/30/16 19:51; Start at 09:00 Mirtazapine (Remeron) 15 mg QHS PO Last administered on 11/30/16 19:51; Start 11/21/16 at 22:00 Olanzapine (Zyprexa Zydis) 5 mg PRN QHS PRN PO PSYCHOSIS Last administered on 14:01; Start 11/21/16 at 22:00 Acetaminophen (Tylenol) 650 mg PRN Q6HRS PRN PO MILD PAIN / TEMP; Start at 06:30; Status Cancel Bisacodyl (Dulcolax Supp) 10 mg PRN DAILY PRN RC CONSTIPATION; Start 11/22/16 at 06:30 Calcium/Vitamin D (Oscal D 500mg/ 200uts) 1 tab DAILY PO Last administered on 10:31; Start 11/22/16 at 09:00 Vitamin D (Vitamin D3) 1,000 unit DAILY PO Last administered on 11/30/16 10:31 ; Start 11/22/16 at 09:00 Hydrocortisone Acetate (Anucort-Hc) 25 mg PRN QID PRN RC Hemmorhoids; Start at 06:30 Levothyroxine Sodium (Synthroid) 25 mcg DAILYAC PO Last administered on 06:31; Start 11/22/16 at 07:30; Stop 11/23/16 at 00:01; Status DC Polyethylene Glycol (miraLAX) 17 gm DAILY PO Last administered on 11/30/16 10: 32; Start 11/22/16 at 09:00 Senna/Docusate Sodium (Senna Plus) 1 tab BID PO Last administered on 11/30/16 19:51; Start 11/22/16 at 09:00 Tramadol HCl (Ultram) 50 mg PRN Q6HRS PRN PO MODERATE PAIN Last administered on 11/23/16 13:39; Start 11/22/16 at 06:30 Lactobacillus Acidophilus (Bacid, Pat-Bid) 2 tab DAILY PO Last administered on 11/30/16 10:31; Start 11/22/16 at 09:00 Cyanocobalamin (Vitamin B-12) 1,000 mcg DAILY PO Last administered on 10:31; Start 11/22/16 at 09:00 Non-Formulary Medication 2,400 mg PRN QHS PRN PO CONSTIPATION; Start 11/22/16 at 06:30; Status UNV Non-Formulary Medication 1 emerson PRN QID PRN TP PAIN; Start 11/22/16 at 06:30; Status UNV Fosfomycin Tromethamine (Monurol) 3 gm 1X ONCE PO ; Start 11/22/16 at 13:00; Stop 11/22/16 at 13:02; Status DC Sertraline HCl (Zoloft) 25 mg DAILY PO Last administered on 11/25/16 08:36; Start 11/23/16 at 09:00; Stop 11/26/16 at 08:59; Status DC Sertraline HCl (Zoloft) 50 mg DAILY PO Last administered on 11/28/16 10:17; Start 11/26/16 at 09:00; Stop 11/28/16 at 19:12; Status DC Levothyroxine Sodium (Synthroid) 25 mcg DAILY06 PO Last administered on 06:29; Start 11/23/16 at 06:00 Trazodone HCl (Desyrel) 50 mg PRN QHS PRN PO INSOMNIA; Start 11/23/16 at 10:45 ; Stop 11/25/16 at 18:31; Status DC Divalproex Sodium (Depakote Sprinkles) 250 mg DAILYWBKFT PO Last administered on 11/30/16 10:31; Start 11/25/16 at 08:00 Divalproex Sodium (Depakote Sprinkles) 500 mg HS PO Last administered on 19:51; Start 11/24/16 at 21:00 Melatonin 3 mg PRN QHS PRN PO INSOMNIA; Start 11/25/16 at 18:30 Quetiapine Fumarate (SEROquel) 25 mg QHS PO Last administered on 11/30/16 19: 51; Start 11/27/16 at 21:00 Sertraline HCl (Zoloft) 75 mg DAILY PO Last administered on 11/30/16 10:31; Start 11/29/16 at 09:00 Active Scripts Active Reported Vitamin D3 (Cholecalciferol (Vitamin D3)) 1,000 Unit Tablet 1,000 Unit PO DAILY Tramadol Hcl (Tramadol HCl) 50 Mg Tablet 50 Mg PO PRN Q6HRS PRN Senna-Docusate Sodium Tablet (Sennosides/Docusate Sodium) 1 Each Tablet 1 Tab PO BID Polyethylene Glycol 3350 255 Gm Powder 17 Gm PO DAILY Calcium 500 + Vit D 200 Tablet (Calcium Carbonate/Vitamin D3) 1 Each Tablet 1 Tab PO DAILY Namenda (Memantine Hcl) 10 Mg Tablet 28 Mg PO DAILY Levothyroxine Sodium 25 Mcg Tablet 25 Mcg PO DAILYAC Fleet Enema (Na Phos,M-B/Na Phos,Di-Ba) 133 Ml Enema 133 Ml RC DAILY Bisacodyl 10 Mg Supp.rect 10 Mg RC PRN DAILY PRN Biofreeze (Menthol) 118 Ml Gel..ml. 1 [place] TP PRN QID PRN Anusol-Hc (Hydrocortisone Acetate) 25 Mg Supp.rect 25 Mg RC PRN QID PRN Align (Bifidobacterium Infantis) 4 Mg Capsule 4 Mg PO DAILY Acetaminophen 500 Mg Tablet 500 Mg PO QID Zyprexa Zydis (Olanzapine) 5 Mg Tab.rapdis 5 Mg PO QHS PRN Remeron (Mirtazapine) 15 Mg Tablet 15 Mg PO QHS Milk Of Magnesia (Magnesium Hydroxide) 2,400 Mg/10 Ml Oral.susp 2,400 Mg PO PRN QHS PRN Acetaminophen 500 Mg Tablet 650 Mg PO PRN Q6HRS PRN Depakote Sprinkle (Divalproex Sodium) 125 Mg Cap.sprink 625 Mg PO QHS B-12 (Cyanocobalamin (Vitamin B-12)) 500 Mcg Tablet 1,000 Mcg PO DAILY Diagnosis: Problems: (1) Dementia with behavioral disturbance (2) Anxiety disorder (3) Dementia in Alzheimer's disease with delusions (4) Dementia in Alzheimer's disease with depression (5) Dementia, vascular, with delusions (6) Dementia, vascular, with depression (7) Impulse control disorder ILIA BUCKNER MD Nov 30, 2016 21:16
--- NOTE | 2016-12-01 00:27 | NUR ---
Behavior Intervention Response and Plan: BIRP Note: Behavior: Assumed Care of patient, patient located in Hallway at shift change. Patient exhibited the following behavior Wandering, Restless, Anxious. Brief assessment on rounds of vital signs, medication needs, lab studies, and pain. Treatment plan problems Dementia w/BD, Alteration in mood and fall risk. Intervention: Patient assessed and the following interventions initiated safety checks 15 Minute Checks Cognitive Assessment , Medications , ADL's. Response: After interactions and interventions patient responded in the following manner, Wandering , Restless ,Anxious. Continue to assess behaviors and condition will continue to monitor throughout the shift as needed. Plan: Continue to monitor Master Treatment Plan for patient's progress toward short term goals of Decreased Agitation, Decreased Aggression, fdc goals to return to previous living setting vs placement. Continue to assess patient for changes in above assessment. Monitor for medication needs, pain, and safety concerns. Hourly rounding performed to ensure safe environment.
[2016-12-01 05:58] VITALS: BP 161/64
[2016-12-01] MEDS: LEVOTHYROXINE 25 MCG TABLET. PO SCH (06:20)
[2016-12-01] MEDS: CYANOCOBALAMIN (VITAMIN B-12) 1,000 MCG TABLET. PO SCH (07:41)
[2016-12-01] MEDS: DIVALPROEX 125 MG CAP.SPRINK PO SCH ×2 (07:41→19:21)
[2016-12-01] MEDS: SERTRALINE 25 MG TABLET. PO SCH (07:41)
[2016-12-01] MEDS: CALCIUM CARB/VIT D3 500/200 TABLET PO SCH (07:41)
[2016-12-01] MEDS: LACTOBACILLUS ACIDOPH & BULGAR 1 TABLET. PO SCH (07:41)
[2016-12-01] MEDS: CHOLECALCIFEROL (VITAMIN D3) 1,000 UNIT TABLET PO SCH (07:42)
[2016-12-01] MEDS: SENNOSIDES/DOCUSATE 8.6/50MG TABLET. PO SCH ×2 (07:42→19:22)
[2016-12-01] MEDS: POLYETHYLENE GLYCOL 3350 17 GM PACKET. PO SCH (07:42)
[2016-12-01] MEDS: MEMANTINE 10 MG TABLET. PO SCH ×2 (07:42→19:22)
--- NOTE | 2016-12-01 11:34 | NUR ---
Patient had non-injury fall at approx. 1100. Nurse witnessed fall- patient was walking towards nurse and lost balance and fell backwards onto her bottom. Nurse global sales manager witnessed fall as well, message left for daughter to call [facility] back. VS: [id number]% RA, patient denies pain, and states she saw someone on the floor, will continue to monitor. Addendum: 12/01/16 at 1241 by MALI VIZCARRA RN Daughter aware, no other issues at this time.
[2016-12-01 15:48] VITALS: BP 113/83
--- NOTE | 2016-12-01 15:54 | NUR ---
Behavior Intervention Response and Plan: BIRP Note: Behavior: Assumed Care of patient, patient located in Day Room at shift change. Patient exhibited the following behavior Wandering, Calm, Disorganized. Brief assessment on rounds of vital signs, medication needs, lab studies, and pain. Treatment plan problems . Intervention: Patient assessed and the following interventions initiated safety checks 15 Minute Checks Cognitive Assessment , Head to toe Assessment , Medications. Response: After interactions and interventions patient responded in the following manner, Calm , Compliant ,Cooperative. Continue to assess behaviors and condition will continue to monitor throughout the shift as needed. Plan: Continue to monitor Master Treatment Plan for patient's progress toward short term goals of Decreased Agitation, Decreased Aggression, correction goals to return to previous living setting vs placement. Continue to assess patient for changes in above assessment. Monitor for medication needs, pain, and safety concerns. Hourly rounding performed to ensure safe environment.
[2016-12-01] MEDS: MIRTAZAPINE 15 MG TABLET PO SCH (19:22)
[2016-12-01] MEDS: QUEtiapine 25 MG TABLET. PO SCH (19:22)
--- NOTE | 2016-12-01 20:30 | NUR ---
Behavior Intervention Response and Plan: BIRP Note: Behavior: Assumed Care of patient, patient located in Day Room at shift change. Patient exhibited the following behavior Calm, Interactive, Disorganized, confused, cooperative. Brief assessment on rounds of vital signs, medication needs, lab studies, and pain. Treatment plan problems: Dementia with BD, alteration in Mood, and Fall Risk . Intervention: Patient assessed and the following interventions initiated safety checks 15 Minute Checks Cognitive Assessment , Head to toe Assessment , Medications, oral hydration, and nutrition, reorientation/redirection. Response: After interactions and interventions patient responded in the following manner, Calm , Cooperative ,Interactive, but remained pleasantly confused and disorganized. Continue to assess behaviors and condition will continue to monitor throughout the shift as needed. Plan: Continue to monitor Master Treatment Plan for patient's progress toward short term goals of Decreased Anxiety, Medication Compliance, Improved Mood, prison goals to return to previous living setting vs placement. Continue to assess patient for changes in above assessment. Monitor for medication needs, pain, and safety concerns. Hourly rounding performed to ensure safe environment.
--- NOTE | 2016-12-02 00:40 | NUR ---
Nursing Note: Patient awake and trying to get out bed; confused and disoriented, non-combative or aggressive, but anxious and states she needs to go and find her . Patient given PRN Zyprexa Zydis as ordered. Will monitor and report response.
--- NOTE | 2016-12-02 01:38 | PDOC ---
Exam Tristin Demential Exam: Tristin Note: Please also refer to the separate dictated note~for this date of service dictated separately.~Patient seen individually. Discussed the patient with Nursing staff reviewed the chart.~Reviewed interim history and current functioning. Reviewed vital signs,~Labs/ Radiology~and current medications noted below. Continue current treatment with the changes noted in the dictated addendum note Assessment: Vital Signs: Vital Signs Date Time Temp Pulse Resp B/P Pulse Ox O2 Delivery O2 Flow Rate FiO2 12/01/16 15:48 97.8 61 16 113/83 96 Room Air I&O Intake and Output 12/01/16 07:00 Intake Total 180 ml Balance 180 ml Intake Oral 180 ml # Voids 2 Current Medications: Meds: Current Medications Ciprofloxacin (Cipro) 500 mg 1X ONCE PO Last administered on 11/21/16 17:38; Start 11/21/16 at 17:45; Stop 11/21/16 at 17:46; Status DC Acetaminophen (Tylenol) 650 mg PRN Q6HRS PRN PO PAIN / TEMP; Start 11/21/16 at 20:15 Multi-Ingredient Ointment (Analgesic [place]) 1 emerson PRN QID PRN TP MUSCLE PAIN; Start 11/21/16 at 20:15 Al Hydroxide/Mg Hydroxide (Mylanta Plus Xs) 15 ml PRN AFTMEALHC PRN PO DYSPEPSIA; Start 11/21/16 at 20:15 Magnesium Hydroxide (Milk Of Magnesia) 2,400 mg PRN QHS PRN PO CONSTIPATION; Start 11/21/16 at 20:15 Divalproex Sodium (Depakote Sprinkles) 625 mg QHS PO Last administered on 19:16; Start 11/21/16 at 22:00; Stop 11/24/16 at 18:43; Status DC Memantine (Namenda) 10 mg BID PO Last administered on 12/01/16 19:22; Start at 09:00 Mirtazapine (Remeron) 15 mg QHS PO Last administered on 12/01/16 19:22; Start 11/21/16 at 22:00 Olanzapine (Zyprexa Zydis) 5 mg PRN QHS PRN PO PSYCHOSIS Last administered on 14:01; Start 11/21/16 at 22:00 Acetaminophen (Tylenol) 650 mg PRN Q6HRS PRN PO MILD PAIN / TEMP; Start at 06:30; Status Cancel Bisacodyl (Dulcolax Supp) 10 mg PRN DAILY PRN RC CONSTIPATION; Start 11/22/16 at 06:30 Calcium/Vitamin D (Oscal D 500mg/ 200uts) 1 tab DAILY PO Last administered on 07:41; Start 11/22/16 at 09:00 Vitamin D (Vitamin D3) 1,000 unit DAILY PO Last administered on 12/01/16 07:42 ; Start 11/22/16 at 09:00 Hydrocortisone Acetate (Anucort-Hc) 25 mg PRN QID PRN RC Hemmorhoids; Start at 06:30 Levothyroxine Sodium (Synthroid) 25 mcg DAILYAC PO Last administered on 06:31; Start 11/22/16 at 07:30; Stop 11/23/16 at 00:01; Status DC Polyethylene Glycol (miraLAX) 17 gm DAILY PO Last administered on 12/01/16 07: 42; Start 11/22/16 at 09:00 Senna/Docusate Sodium (Senna Plus) 1 tab BID PO Last administered on 12/01/16 19:22; Start 11/22/16 at 09:00 Tramadol HCl (Ultram) 50 mg PRN Q6HRS PRN PO MODERATE PAIN Last administered on 11/23/16 13:39; Start 11/22/16 at 06:30 Lactobacillus Acidophilus (Bacid, Pat-Bid) 2 tab DAILY PO Last administered on 12/01/16 07:41; Start 11/22/16 at 09:00 Cyanocobalamin (Vitamin B-12) 1,000 mcg DAILY PO Last administered on 07:41; Start 11/22/16 at 09:00 Non-Formulary Medication 2,400 mg PRN QHS PRN PO CONSTIPATION; Start 11/22/16 at 06:30; Status UNV Non-Formulary Medication 1 emerson PRN QID PRN TP PAIN; Start 11/22/16 at 06:30; Status UNV Fosfomycin Tromethamine (Monurol) 3 gm 1X ONCE PO ; Start 11/22/16 at 13:00; Stop 11/22/16 at 13:02; Status DC Sertraline HCl (Zoloft) 25 mg DAILY PO Last administered on 11/25/16 08:36; Start 11/23/16 at 09:00; Stop 11/26/16 at 08:59; Status DC Sertraline HCl (Zoloft) 50 mg DAILY PO Last administered on 11/28/16 10:17; Start 11/26/16 at 09:00; Stop 11/28/16 at 19:12; Status DC Levothyroxine Sodium (Synthroid) 25 mcg DAILY06 PO Last administered on 06:20; Start 11/23/16 at 06:00 Trazodone HCl (Desyrel) 50 mg PRN QHS PRN PO INSOMNIA; Start 11/23/16 at 10:45 ; Stop 11/25/16 at 18:31; Status DC Divalproex Sodium (Depakote Sprinkles) 250 mg DAILYWBKFT PO Last administered on 12/01/16 07:41; Start 11/25/16 at 08:00 Divalproex Sodium (Depakote Sprinkles) 500 mg HS PO Last administered on 19:21; Start 11/24/16 at 21:00 Melatonin 3 mg PRN QHS PRN PO INSOMNIA; Start 11/25/16 at 18:30 Quetiapine Fumarate (SEROquel) 25 mg QHS PO Last administered on 12/01/16 19: 22; Start 11/27/16 at 21:00 Sertraline HCl (Zoloft) 75 mg DAILY PO Last administered on 12/01/16 07:41; Start 11/29/16 at 09:00 Active Scripts Active Reported Vitamin D3 (Cholecalciferol (Vitamin D3)) 1,000 Unit Tablet 1,000 Unit PO DAILY Tramadol Hcl (Tramadol HCl) 50 Mg Tablet 50 Mg PO PRN Q6HRS PRN Senna-Docusate Sodium Tablet (Sennosides/Docusate Sodium) 1 Each Tablet 1 Tab PO BID Polyethylene Glycol 3350 255 Gm Powder 17 Gm PO DAILY Calcium 500 + Vit D 200 Tablet (Calcium Carbonate/Vitamin D3) 1 Each Tablet 1 Tab PO DAILY Namenda (Memantine Hcl) 10 Mg Tablet 28 Mg PO DAILY Levothyroxine Sodium 25 Mcg Tablet 25 Mcg PO DAILYAC Fleet Enema (Na Phos,M-B/Na Phos,Di-Ba) 133 Ml Enema 133 Ml RC DAILY Bisacodyl 10 Mg Supp.rect 10 Mg RC PRN DAILY PRN Biofreeze (Menthol) 118 Ml Gel..ml. 1 Emerson TP PRN QID PRN Anusol-Hc (Hydrocortisone Acetate) 25 Mg Supp.rect 25 Mg RC PRN QID PRN Align (Bifidobacterium Infantis) 4 Mg Capsule 4 Mg PO DAILY Acetaminophen 500 Mg Tablet 500 Mg PO QID Zyprexa Zydis (Olanzapine) 5 Mg Tab.rapdis 5 Mg PO QHS PRN Remeron (Mirtazapine) 15 Mg Tablet 15 Mg PO QHS Milk Of Magnesia (Magnesium Hydroxide) 2,400 Mg/10 Ml Oral.susp 2,400 Mg PO PRN QHS PRN Acetaminophen 500 Mg Tablet 650 Mg PO PRN Q6HRS PRN Depakote Sprinkle (Divalproex Sodium) 125 Mg Cap.sprink 625 Mg PO QHS B-12 (Cyanocobalamin (Vitamin B-12)) 500 Mcg Tablet 1,000 Mcg PO DAILY Diagnosis: Problems: (1) Dementia with behavioral disturbance (2) Anxiety disorder (3) Dementia in Alzheimer's disease with delusions (4) Dementia in Alzheimer's disease with depression (5) Dementia, vascular, with delusions (6) Dementia, vascular, with depression (7) Impulse control disorder ILIA BUCKNER MD Dec 01, 2016 21:07
--- NOTE | 2016-12-02 02:00 | NUR ---
Nursing Note: Patient resting quietly in bed s/p Zydis administration. Will continue to monitor.
[2016-12-02] MEDS: LEVOTHYROXINE 25 MCG TABLET. PO SCH (04:52)
[2016-12-02 06:06] VITALS: BP 114/62
[2016-12-02] MEDS: POLYETHYLENE GLYCOL 3350 17 GM PACKET. PO SCH (08:57)
[2016-12-02] MEDS: LACTOBACILLUS ACIDOPH & BULGAR 1 TABLET. PO SCH (08:57)
[2016-12-02] MEDS: MEMANTINE 10 MG TABLET. PO SCH ×2 (08:57→20:33)
[2016-12-02] MEDS: DIVALPROEX 125 MG CAP.SPRINK PO SCH ×2 (08:57→20:33)
[2016-12-02] MEDS: SENNOSIDES/DOCUSATE 8.6/50MG TABLET. PO SCH ×2 (08:58→20:33)
[2016-12-02] MEDS: CYANOCOBALAMIN (VITAMIN B-12) 1,000 MCG TABLET. PO SCH (08:58)
[2016-12-02] MEDS: CALCIUM CARB/VIT D3 500/200 TABLET PO SCH (08:58)
[2016-12-02] MEDS: CHOLECALCIFEROL (VITAMIN D3) 1,000 UNIT TABLET PO SCH (08:58)
[2016-12-02] MEDS: SERTRALINE 25 MG TABLET. PO SCH (08:58)
--- NOTE | 2016-12-02 12:07 | PN ---
DATE: 11/29/2016 PSYCHIATRIC PROGRESS NOTE This is a late entry of 11/29/2016 covers elements not covered in my initial note. SUBJECTIVE: Overall, the patient remains confused, ambulates on her own. UA is negative. Oriented just to herself, anxious, restless at times. REVIEW OF SYSTEMS: No CV, , pulmonary, eye, ENT system symptoms on review. Reliability poor. MENTAL STATUS EXAM: Oriented to herself. Insight, judgment, recent and remote memory, attention, concentration, fund of knowledge poor, consistent with her diagnosis mentioned in my initial note. PLAN: Continue psychotropics mentioned in my initial note, valproic acid level 41. Despite being slightly subtherapeutic as clinically adequate for now, but if behaviors resurface we will increase it. MAN Zabrina BUCKNER MD DR: KAYDEN/francesca JOB#: [id number] / [id number]
--- NOTE | 2016-12-02 12:10 | PN ---
DATE: 11/30/2016 PSYCHIATRIC PROGRESS NOTE This is a late entry 11/30/2016, covers elements not covered in my initial note. SUBJECTIVE: The patient was staffed at treatment team meeting with the entire team and the patient's daughter Mckayla attended the conference. Lengthy discussion about the patient's history of past hospitalization [facility] and then at [facility] and prior to that she was in adult daycare. The patient has been at [facility] about 2 years, sleeping about 5 hours, appetite 50%, wandering, confused. REVIEW OF SYSTEMS: No CV, , pulmonary, eye, ENT system symptoms on review. Reliability poor. MENTAL STATUS EXAM: Oriented to herself. Insight, judgment, recent and remote memory, attention, concentration, fund of knowledge poor, consistent with her diagnoses mentioned in my initial note. PLAN: Continue Namenda, Depakote, Remeron, Zyprexa p.r.n. Increase Seroquel from 25 mg at bedtime to 50 mg at bedtime. Maintain Zoloft 75 mg a day, melatonin p.r.n. MAN Zabrina BUCKNER MD DR: KAYDEN/francesca JOB#: [id number] / [id number]
--- NOTE | 2016-12-02 14:13 | NUR ---
Behavior Intervention Response and Plan: BIRP Note: Behavior: Assumed Care of patient, patient located in Day Room at shift change. Patient exhibited the following behavior calm, cooperative, compliant, and confused. Brief assessment on rounds of vital signs, medication needs, lab studies, and pain. Treatment plan problems: Dementia with BD, alteration in Mood, Fall Risk . Intervention: Patient assessed and the following interventions initiated safety checks 15 Minute Checks Cognitive Assessment , Head to toe Assessment , Medications. Response: After interactions and interventions patient responded in the following manner, Calm, confused, Compliant, Cooperative. Continue to assess behaviors and condition will continue to monitor throughout the shift as needed. Plan: Continue to monitor Master Treatment Plan for patient's progress toward short term goals of Decreased agitation, Decreased Anxiety, Medication Compliance, Improved Mood, long term care phlebotomist goals to return to previous living setting vs placement. Continue to assess patient for changes in above assessment. Monitor for medication needs, pain, and safety concerns. Hourly rounding performed to ensure safe environment.
[2016-12-02 16:36] VITALS: BP 149/84
[2016-12-02] MEDS: MIRTAZAPINE 15 MG TABLET PO SCH (20:33)
[2016-12-02] MEDS: QUEtiapine 25 MG TABLET. PO SCH (20:33)
--- NOTE | 2016-12-02 22:33 | PDOC ---
Exam Tristin Demential Exam: Tristin Note: Please also refer to the separate dictated note~for this date of service dictated separately.~Patient seen individually. Discussed the patient with Nursing staff reviewed the chart.~Reviewed interim history and current functioning. Reviewed vital signs,~Labs/ Radiology~and current medications noted below. Continue current treatment with the changes noted in the dictated addendum note Assessment: Vital Signs: Vital Signs Date Time Temp Pulse Resp B/P Pulse Ox O2 Delivery O2 Flow Rate FiO2 12/02/16 16:36 97.8 70 16 149/84 95 12/01/16 15:48 Room Air I&O Intake and Output 12/02/16 07:00 Intake Total 840 ml Balance 840 ml Intake Oral 840 ml # Voids 1 Current Medications: Meds: Current Medications Ciprofloxacin (Cipro) 500 mg 1X ONCE PO Last administered on 11/21/16 17:38; Start 11/21/16 at 17:45; Stop 11/21/16 at 17:46; Status DC Acetaminophen (Tylenol) 650 mg PRN Q6HRS PRN PO PAIN / TEMP; Start 11/21/16 at 20:15 Multi-Ingredient Ointment (Analgesic [place]) 1 emerson PRN QID PRN TP MUSCLE PAIN; Start 11/21/16 at 20:15 Al Hydroxide/Mg Hydroxide (Mylanta Plus Xs) 15 ml PRN AFTMEALHC PRN PO DYSPEPSIA; Start 11/21/16 at 20:15 Magnesium Hydroxide (Milk Of Magnesia) 2,400 mg PRN QHS PRN PO CONSTIPATION Last administered on 12/02/16 20:54; Start 11/21/16 at 20:15 Divalproex Sodium (Depakote Sprinkles) 625 mg QHS PO Last administered on 19:16; Start 11/21/16 at 22:00; Stop 11/24/16 at 18:43; Status DC Memantine (Namenda) 10 mg BID PO Last administered on 12/02/16 20:33; Start at 09:00 Mirtazapine (Remeron) 15 mg QHS PO Last administered on 12/02/16 20:33; Start 11/21/16 at 22:00 Olanzapine (Zyprexa Zydis) 5 mg PRN QHS PRN PO PSYCHOSIS Last administered on 00:40; Start 11/21/16 at 22:00 Acetaminophen (Tylenol) 650 mg PRN Q6HRS PRN PO MILD PAIN / TEMP; Start at 06:30; Status Cancel Bisacodyl (Dulcolax Supp) 10 mg PRN DAILY PRN RC CONSTIPATION; Start 11/22/16 at 06:30 Calcium/Vitamin D (Oscal D 500mg/ 200uts) 1 tab DAILY PO Last administered on 08:58; Start 11/22/16 at 09:00 Vitamin D (Vitamin D3) 1,000 unit DAILY PO Last administered on 12/02/16 08:58 ; Start 11/22/16 at 09:00 Hydrocortisone Acetate (Anucort-Hc) 25 mg PRN QID PRN RC Hemmorhoids; Start at 06:30 Levothyroxine Sodium (Synthroid) 25 mcg DAILYAC PO Last administered on 06:31; Start 11/22/16 at 07:30; Stop 11/23/16 at 00:01; Status DC Polyethylene Glycol (miraLAX) 17 gm DAILY PO Last administered on 12/02/16 08: 57; Start 11/22/16 at 09:00 Senna/Docusate Sodium (Senna Plus) 1 tab BID PO Last administered on 12/02/16 20:33; Start 11/22/16 at 09:00 Tramadol HCl (Ultram) 50 mg PRN Q6HRS PRN PO MODERATE PAIN Last administered on 11/23/16 13:39; Start 11/22/16 at 06:30 Lactobacillus Acidophilus (Bacid, Pat-Bid) 2 tab DAILY PO Last administered on 12/02/16 08:57; Start 11/22/16 at 09:00 Cyanocobalamin (Vitamin B-12) 1,000 mcg DAILY PO Last administered on 08:58; Start 11/22/16 at 09:00 Non-Formulary Medication 2,400 mg PRN QHS PRN PO CONSTIPATION; Start 11/22/16 at 06:30; Status UNV Non-Formulary Medication 1 emerson PRN QID PRN TP PAIN; Start 11/22/16 at 06:30; Status UNV Fosfomycin Tromethamine (Monurol) 3 gm 1X ONCE PO ; Start 11/22/16 at 13:00; Stop 11/22/16 at 13:02; Status DC Sertraline HCl (Zoloft) 25 mg DAILY PO Last administered on 11/25/16 08:36; Start 11/23/16 at 09:00; Stop 11/26/16 at 08:59; Status DC Sertraline HCl (Zoloft) 50 mg DAILY PO Last administered on 11/28/16 10:17; Start 11/26/16 at 09:00; Stop 11/28/16 at 19:12; Status DC Levothyroxine Sodium (Synthroid) 25 mcg DAILY06 PO Last administered on 04:52; Start 11/23/16 at 06:00 Trazodone HCl (Desyrel) 50 mg PRN QHS PRN PO INSOMNIA; Start 11/23/16 at 10:45 ; Stop 11/25/16 at 18:31; Status DC Divalproex Sodium (Depakote Sprinkles) 250 mg DAILYWBKFT PO Last administered on 12/02/16 08:57; Start 11/25/16 at 08:00 Divalproex Sodium (Depakote Sprinkles) 500 mg HS PO Last administered on 20:33; Start 11/24/16 at 21:00 Melatonin 3 mg PRN QHS PRN PO INSOMNIA; Start 11/25/16 at 18:30 Quetiapine Fumarate (SEROquel) 25 mg QHS PO Last administered on 12/02/16 20: 33; Start 11/27/16 at 21:00 Sertraline HCl (Zoloft) 75 mg DAILY PO Last administered on 12/02/16 08:58; Start 11/29/16 at 09:00 Active Scripts Active Reported Vitamin D3 (Cholecalciferol (Vitamin D3)) 1,000 Unit Tablet 1,000 Unit PO DAILY Tramadol Hcl (Tramadol HCl) 50 Mg Tablet 50 Mg PO PRN Q6HRS PRN Senna-Docusate Sodium Tablet (Sennosides/Docusate Sodium) 1 Each Tablet 1 Tab PO BID Polyethylene Glycol 3350 255 Gm Powder 17 Gm PO DAILY Calcium 500 + Vit D 200 Tablet (Calcium Carbonate/Vitamin D3) 1 Each Tablet 1 Tab PO DAILY Namenda (Memantine Hcl) 10 Mg Tablet 28 Mg PO DAILY Levothyroxine Sodium 25 Mcg Tablet 25 Mcg PO DAILYAC Fleet Enema (Na Phos,M-B/Na Phos,Di-Ba) 133 Ml Enema 133 Ml RC DAILY Bisacodyl 10 Mg Supp.rect 10 Mg RC PRN DAILY PRN Biofreeze (Menthol) 118 Ml Gel..ml. 1 Emerson TP PRN QID PRN Anusol-Hc (Hydrocortisone Acetate) 25 Mg Supp.rect 25 Mg RC PRN QID PRN Align (Bifidobacterium Infantis) 4 Mg Capsule 4 Mg PO DAILY Acetaminophen 500 Mg Tablet 500 Mg PO QID Zyprexa Zydis (Olanzapine) 5 Mg Tab.rapdis 5 Mg PO QHS PRN Remeron (Mirtazapine) 15 Mg Tablet 15 Mg PO QHS Milk Of Magnesia (Magnesium Hydroxide) 2,400 Mg/10 Ml Oral.susp 2,400 Mg PO PRN QHS PRN Acetaminophen 500 Mg Tablet 650 Mg PO PRN Q6HRS PRN Depakote Sprinkle (Divalproex Sodium) 125 Mg Cap.sprink 625 Mg PO QHS B-12 (Cyanocobalamin (Vitamin B-12)) 500 Mcg Tablet 1,000 Mcg PO DAILY Diagnosis: Problems: (1) Dementia with behavioral disturbance (2) Anxiety disorder (3) Dementia in Alzheimer's disease with delusions (4) Dementia in Alzheimer's disease with depression (5) Dementia, vascular, with delusions (6) Dementia, vascular, with depression (7) Impulse control disorder ILIA BUCKNER MD Dec 02, 2016 22:33
--- NOTE | 2016-12-03 00:20 | NUR ---
Behavior Intervention Response and Plan: BIRP Note: Behavior: Assumed Care of patient, patient located in Day Room at shift change. Patient exhibited the following behavior Calm, Able to Focus on Task, Cooperative. Brief assessment on rounds of vital signs, medication needs, lab studies, and pain. Treatment plan problems :1-2. Intervention: Patient assessed and the following interventions initiated safety checks 15 Minute Checks Cognitive Assessment , Head to toe Assessment , Medications. Response: After interactions and interventions patient responded in the following manner, Social , Compliant ,Appropriate. Continue to assess behaviors and condition will continue to monitor throughout the shift as needed. Plan: Continue to monitor Master Treatment Plan for patient's progress toward short term goals of Decreased Agitation, Improved Mood, medical terminologist goals to return to previous living setting vs placement. Continue to assess patient for changes in above assessment. Monitor for medication needs, pain, and safety concerns. Hourly rounding performed to ensure safe environment.
--- NOTE | 2016-12-03 01:34 | NUR ---
Nsg Note: Pt was given prn MOM secondary to hypo bowel sounds & slightly distended abd. Pt did have a large BM tonight when preparing for HS.
[2016-12-03] MEDS: LEVOTHYROXINE 25 MCG TABLET. PO SCH (04:59)
[2016-12-03 06:12] VITALS: BP 150/80
[2016-12-03] MEDS: SERTRALINE 25 MG TABLET. PO SCH (09:45)
[2016-12-03] MEDS: MEMANTINE 10 MG TABLET. PO SCH ×2 (09:45→21:02)
[2016-12-03] MEDS: POLYETHYLENE GLYCOL 3350 17 GM PACKET. PO SCH (09:45)
[2016-12-03] MEDS: SENNOSIDES/DOCUSATE 8.6/50MG TABLET. PO SCH ×2 (09:45→21:02)
[2016-12-03] MEDS: CALCIUM CARB/VIT D3 500/200 TABLET PO SCH (09:45)
[2016-12-03] MEDS: DIVALPROEX 125 MG CAP.SPRINK PO SCH ×2 (09:45→21:02)
[2016-12-03] MEDS: LACTOBACILLUS ACIDOPH & BULGAR 1 TABLET. PO SCH (09:45)
[2016-12-03] MEDS: CYANOCOBALAMIN (VITAMIN B-12) 1,000 MCG TABLET. PO SCH (09:45)
[2016-12-03] MEDS: CHOLECALCIFEROL (VITAMIN D3) 1,000 UNIT TABLET PO SCH (09:45)
--- NOTE | 2016-12-03 10:13 | NUR ---
Behavior Intervention Response and Plan: BIRP Note: Behavior: Assumed Care of patient, patient located in Day Room at shift change. Patient exhibited the following behavior calm, cooperative, compliant, and confused. Brief assessment on rounds of vital signs, medication needs, lab studies, and pain. Treatment plan problems: Dementia with BD, alteration in Mood, Fall Risk . Intervention: Patient assessed and the following interventions initiated safety checks 15 Minute Checks Cognitive Assessment , Head to toe Assessment , Medications. Response: After interactions and interventions patient responded in the following manner, Calm, confused, Compliant, Cooperative. Continue to assess behaviors and condition will continue to monitor throughout the shift as needed. Plan: Continue to monitor Master Treatment Plan for patient's progress toward short term goals of Decreased agitation, Decreased Anxiety, Medication Compliance, Improved Mood, medical terminologist goals to return to previous living setting vs placement. Continue to assess patient for changes in above assessment. Monitor for medication needs, pain, and safety concerns. Hourly rounding performed to ensure safe environment.
[2016-12-03 17:44] VITALS: BP 138/78
[2016-12-03] MEDS: QUEtiapine 25 MG TABLET. PO SCH (21:03)
[2016-12-03] MEDS: MIRTAZAPINE 15 MG TABLET PO SCH (21:03)
--- NOTE | 2016-12-04 01:07 | NUR ---
Behavior Intervention Response and Plan: BIRP Note: Behavior: Assumed Care of patient, patient located in Day Room at shift change. Patient exhibited the following behavior Calm, Able to Focus on Task, Cooperative. Brief assessment on rounds of vital signs, medication needs, lab studies, and pain. Treatment plan problems:1-2 Intervention: Patient assessed and the following interventions initiated safety checks 15 Minute Checks Cognitive Assessment , Head to toe Assessment , Medications. Response: After interactions and interventions patient responded in the following manner, Disorganized , Cooperative ,Calm. Continue to assess behaviors and condition will continue to monitor throughout the shift as needed. Plan: Continue to monitor Master Treatment Plan for patient's progress toward short term goals of Decreased Agitation, Improved Mood, clinical staff rn goals to return to previous living setting vs placement. Continue to assess patient for changes in above assessment. Monitor for medication needs, pain, and safety concerns. Hourly rounding performed to ensure safe environment.
[2016-12-04] MEDS: LEVOTHYROXINE 25 MCG TABLET. PO SCH (05:52)
[2016-12-04 06:13] VITALS: BP 131/76
[2016-12-04 07:30] VITALS: BP 92/58
--- NOTE | 2016-12-04 07:45 | NUR ---
At 0730 staff heard a loud noise and pt yell out. Staff arrived in bathroom of room 215 to find pt laying on her right side facing the sink with the bathroom door open and her head leaning against the wall. Staff saw a small amount of blood on the floor and on the right side of the pts head just above her ear. Pt yelling out her arm hurts (right). Pt sat up and given first aide. Small laceration to right side of head and bruising and swelling to R wrist. VS taken. Pt placed in broda chair and taken to nurses station. Applied pressure to laceration and attempted to place ice on pts wrist however, pt would not be compliant and removed ice pack. Dr. Cristina notified, left message for family, Dr. Monae notified with new orders for STAT CT of head and cervical spine, STAT X-Ray of R wrist and FA and neuro checks Q 30 minutes X [address] hours or until the CT is complete.
--- NOTE | 2016-12-04 08:15 | NUR ---
Behavior Intervention Response and Plan: BIRP Note: Behavior: Assumed Care of patient, patient located in Day Room at shift change. Patient exhibited the following behavior Calm, cooperative, and compliant. Able to Focus on Task, Cooperative, medications held d/t fall. Brief assessment on rounds of vital signs, medication needs, lab studies, and pain. Treatment plan problems:1-2 Intervention: Patient assessed and the following interventions initiated safety checks 15 Minute Checks Cognitive Assessment , Head to toe Assessment. Response: After interactions and interventions patient responded in the following manner, Disorganized , Cooperative ,Calm. Continue to assess behaviors and condition will continue to monitor throughout the shift as needed. Plan: Continue to monitor Master Treatment Plan for patient's progress toward short term goals of Decreased Agitation, Improved Mood, long-term goals to return to previous living setting vs placement. Continue to assess patient for changes in above assessment. Monitor for medication needs, pain, and safety concerns. Hourly rounding performed to ensure safe environment.
--- NOTE | 2016-12-04 09:21 | RAD ---
CT of the head without contrast, 12/04/2016: History: Fall, head and neck pain There is moderate cerebral atrophy. There are moderate patchy lucencies in the deep white matter bilaterally compatible with chronic ischemic change. The ventricles are enlarged on a compensatory basis. There is no shift of the midline structures. There is no evidence of acute intracranial hemorrhage or mass effect. There is a small bony protuberance arising from the external table of the skull in the left anterior temporal region. This is compatible with a benign osteoma or old trauma. IMPRESSION: 1. Cerebral atrophy. 2. Moderate patchy bilateral deep white matter lucencies compatible with chronic ischemic change. 3. No acute intracranial abnormality is detected. CT of the cervical spine without contrast, 12/04/2016: Noncontrast scans were obtained with multiplanar reconstructions produced. There is partial fusion of the C5 and C6 vertebral bodies. There are moderate scattered marginal spurs, most prominent at the C5-6 level. There are moderate hypertrophic degenerative changes involving multiple facet joints bilaterally. There is a slight associated spondylolisthesis at C4-5 and at C7-T1 due to facet joint arthropathy. There are mild scattered posterior disc bulges. The combination of findings is causing mild narrowing of the the central spinal canal and moderate foraminal narrowing, more so on the left, at C5-6. No acute fracture is identified. IMPRESSION: 1. Moderate multilevel degenerative change. 2. No acute bony abnormality is detected. PQRS Compliance Statement: One or more of the following individualized dose reduction techniques were utilized for this examination: 1. Automated exposure control 2. Adjustment of the mA and/or kV according to patient size 3. Use of iterative reconstruction technique
--- NOTE | 2016-12-04 09:56 | RAD ---
Right wrist, 3 views, 12/04/2016: History: Fall There is patchy bony demineralization. There is a slightly comminuted fracture of the distal radius. There is moderate lateral and dorsal displacement and mild dorsal angulation of the major distal fracture fragment. A small ulnar styloid fracture is also noted. The carpal bones are intact. There is moderate degenerative changes at the wrist. Right forearm, 2 views, 12/04/2016: No additional fracture or dislocation is identified. IMPRESSION: 1. Demineralization. 2. Displaced and angulated distal radial fracture. 3. Ulnar styloid fracture.
--- NOTE | 2016-12-04 14:21 | PN ---
DATE: 12/02/2016 PSYCHIATRIC PROGRESS NOTE This is a late entry 12/02 covers elements not covered in my initial note. SUBJECTIVE: The patient remains confused, agitated at night, received Zyprexa p.r.n., had a better night, easily arousable. REVIEW OF SYSTEMS: No CV, , pulmonary, eye, ENT system symptoms on review. Reliability poor. MENTAL STATUS EXAM: Oriented to herself. Insight, judgment, recent and remote memory, attention, concentration, fund of knowledge poor, consistent with her diagnosis mentioned in my initial note. PLAN: Continue psychotropics mentioned in my initial note. Adjust as clinically indicated. ILIA BUCKNER MD DR: KAYDEN/francesca JOB#: [id number] / [id number]
[2016-12-04] MEDS ORDERED: SERT50TA PO (14:36)
[2016-12-04] MEDS ORDERED: DIVA125C PO (14:37)
[2016-12-04] MEDS ORDERED: LACT1TAB24 PO (14:38)
[2016-12-04] MEDS ORDERED: MELA3TAB2 PO (14:39)
--- NOTE | 2016-12-04 14:51 | NUR ---
Gave report to Randy. Faxed med rec.
--- NOTE | 2016-12-05 08:13 | PN ---
DATE: 12/03/2016 PSYCHIATRIC PROGRESS NOTE This is a late entry for 12/03/2016. SUBJECTIVE: The patient was seen on rounds the evening of 12/03/2016. Discussed with nursing staff, reviewed the chart. Per nursing report, the patient has been withdrawn, was talking about this being her last day that " is catching up to me." No CV, , pulmonary, eye, ENT system symptoms on review. Reliability poor. MENTAL STATUS EXAM: Oriented to herself. Insight, judgment, recent and remote memory, attention, concentration, fund of knowledge poor, consistent with her diagnosis. VITAL SIGNS: Temperature 97, BP 131/76, pulse 64. LABORATORY DATA: Reviewed. IMPRESSION: Major neurocognitive disorder, Alzheimer, vascular with depression, delusions and behavioral disturbance. Rest diagnoses unchanged. PLAN: Continue Namenda 10 mg b.i.d.; Depakote 250 mg a.m. and 500 mg at bedtime, level is 87, therapeutic; Remeron 15 mg at bedtime; Zyprexa p.r.n.; Seroquel 25 mg at bedtime; Zoloft 75 mg a day; melatonin 3 mg at bedtime p.r.n.. MAN Zabrina BUCKNER MD DR: KAYDEN/francesca JOB#: [id number] / [id number]
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
--- NOTE | 2016-12-08 12:55 | NUR ---
patient DPOA Mckayla Noguera called requesting copy of discharge medication list. Gave request information to medical records. DPOA address is: Mckayla Noguera [address] [place] [address]
== END 2016-12-04 10:04 | disposition short-term general hospital (02) | DRG 884 ==
LOC: ER 13:35 → GEROPSY 18:45
PROVIDERS: ADMIT Psychiatry & Neurology Psychiatry; ATTEND Psychiatry & Neurology Psychiatry
DX: F01.51 Vascular dementia, unspecified severity, with behavioral disturbance (principal); F02.81 Dementia in other diseases classified elsewhere, unspecified severity, with behavioral disturbance; E87.0 Hyperosmolality and hypernatremia; M80.031A Age-related osteoporosis with current pathological fracture, right forearm, initial encounter for fracture; G30.9 Alzheimer's disease, unspecified; E83.52 Hypercalcemia; E03.9 Hypothyroidism, unspecified; F32.9 Major depressive disorder, single episode, unspecified; F41.9 Anxiety disorder, unspecified; F63.9 Impulse disorder, unspecified; I10 Essential (primary) hypertension; M15.9 Polyosteoarthritis, unspecified; N28.9 Disorder of kidney and ureter, unspecified; D64.9 Anemia, unspecified; E86.0 Dehydration; Z88.1 Allergy status to other antibiotic agents; Z88.8 Allergy status to other drugs, medicaments and biological substances; Z79.899 Other long term (current) drug therapy; W19.XXXA Unspecified fall, initial encounter
CPT/HCPCS: 36415; 51701; 70450; 72125; 73090; 73110; 80053; 80061; 80164; 81001; 82306; 82607; 83036; 83540; 83550; 83735; 84436; 84443; 84480; 85007; 85027; 86592; 86593; 87086; 93005; 97110; 97116; 97530; 99285-25

== ENCOUNTER 2016-12-04 09:58 | Emergency (ER) | payer MEDICARE, OTHER ==
[~2016-12-04] VITALS: Ht 152.4 cm; Wt 45.8 kg
[~2016-12-04 09:58] MED LIST changes: +BIFI4CAP PO; +BISA10SU2 RC; +CALC-157 PO; +CHOL10003 PO; +HYDR25SU18 RC; +LEVO25TA4 PO; +MEMA10TA PO; +MENT118G TP; +NA P133E2 RC; +POLY255P PO; +SENN1TAB7 PO; +TRAM50TA PO
[2016-12-04 10:15] VITALS: BP 121/65
[2016-12-04] MEDS: fentaNYL PF 100 MCG/2 ML VIAL IV PRN ×2 (10:32→10:57)
--- NOTE | 2016-12-04 11:27 | ED.ADGEN ---
Past History Past Medical History: Anxiety, Dementia, Hypertension, Hypothyroid, Other Past Surgical History: Other Alcohol Use: None Drug Use: None Adult General HPI HPI Patient is a 81-year-old year old female who presents with right wrist pain. According to staff from [facility] she fell this morning at 7:30. She is unable to answer any questions. She has an obvious deformity of her right wrist. Review of Systems Review of Systems Constitutional: Denies fever or chills [] Eyes: Denies change in visual acuity, redness, or eye pain [] HENT: Denies nasal congestion or sore throat [] Respiratory: Denies cough or shortness of breath [] Cardiovascular: No additional information not addressed in HPI [] GI: Denies abdominal pain, nausea, vomiting, bloody stools or diarrhea [] : Denies dysuria or hematuria [] Musculoskeletal: Denies back pain or joint pain [] Integument: Denies rash or skin lesions [] Neurologic: Denies headache, focal weakness or sensory changes [] Endocrine: Denies polyuria or polydipsia [] Current Medications Current Medications Current Medications Medications (Trade) Dose Ordered Sig/Onelia Start Time Stop Time Status Last Admin Dose Admin Diphtheria/ Tetanus/Acell Pertussis (Boostrix) 0.5 ml ONCE ONCE 12/04/16 13:00 12/04/16 13:01 DC 12/04/16 13:22 0.5 ML Fentanyl Citrate (Fentanyl 2ml Vial) 25 mcg PRN Q15MIN PRN 12/04/16 10:30 12/05/16 10:29 12/04/16 10:57 25 MCG Lidocaine/Sodium Bicarbonate (Buffered Lidocaine 1%) 3 ml 1X ONCE 12/04/16 13:00 12/04/16 13:01 DC 12/04/16 13:11 3 ML Allergies Allergies Allergies Coded Allergies Type Severity Reaction Last Updated Verified amoxicillin Allergy Intermediate 12/08/14 Yes dextromethorphan Allergy Intermediate 12/08/14 Yes phenylephrine Allergy Intermediate 12/08/14 Yes pyrilamine Allergy Intermediate 12/08/14 Yes Physical Exam Physical Exam Constitutional: Well developed, well nourished, no acute distress, non-toxic appearance. [] HENT: Normocephalic, 1 cm laceration above the right ear on her scalp, bilateral external ears normal, oropharynx moist, no oral exudates, nose normal. [] Eyes: PERRLA, EOMI, conjunctiva normal, no discharge. [] Neck: Normal range of motion, no tenderness, supple, no stridor. [] Cardiovascular:Heart rate regular rhythm, no murmur [] Lungs & Thorax: Bilateral breath sounds clear to auscultation [] Abdomen: Bowel sounds normal, soft, no tenderness, no masses, no pulsatile masses. [] Skin: Warm, dry, no erythema, no rash. [] Back: No tenderness, no CVA tenderness. [] Extremities: Tender to palpation with obvious deformity of the right wrist, no cyanosis, no clubbing, ROM intact, no edema. [] Neurologic: Alert and pleasantly demented, normal motor function, normal sensory function, no focal deficits noted. [] Current Patient Data Vital Signs Vital Signs Date Time Temp Pulse Resp B/P Pulse Ox O2 Delivery O2 Flow Rate FiO2 12/04/16 10:57 16 12/04/16 10:32 98 12/04/16 10:15 97.7 67 Room Air EKG EKG [] Radiology/Procedures Radiology/Procedures [address] [address] IMAGING REPORT Signed PATIENT: CLARKE SERVIN ACCOUNT: [id number] : 1935 LOCATION: [facility] AGE: 81 SEX: F EXAM [id number] STATUS: ADM IN ORD. PHYSICIAN: BRISA KIM DO REASON: fall PROCEDURE: FOREARM RIGHT; WRIST 3V RIGHT Right wrist, 3 views, 12/04/2016: History: Fall There is patchy bony demineralization. There is a slightly comminuted fracture of the distal radius. There is moderate lateral and dorsal displacement and mild dorsal angulation of the major distal fracture fragment. A small ulnar styloid fracture is also noted. The carpal bones are intact. There is moderate degenerative changes at the wrist. Right forearm, 2 views, 12/04/2016: No additional fracture or dislocation is identified. IMPRESSION: 1. Demineralization. 2. Displaced and angulated distal radial fracture. 3. Ulnar styloid fracture. DICTATED AND SIGNED BY: DAINA GONZALEZ MD DATE: 12/04/16 1523 CC: ILIA BUCKNER MD; BRISA KIM DO; HANNAH CHRISTOPHER MD ~ [place] [address] IMAGING REPORT Signed PATIENT: CLARKE SERVIN ACCOUNT: [id number] : 1935 LOCATION: [facility] AGE: 81 SEX: F EXAM STATUS: ADM IN ORD. PHYSICIAN: BRISA KIM DO REASON: Fall PROCEDURE: CT HEAD AND CERVICAL SPINE WO CT of the head without contrast, 12/04/2016: History: Fall, head and neck pain There is moderate cerebral atrophy. There are moderate patchy lucencies in the deep white matter bilaterally compatible with chronic ischemic change. The ventricles are enlarged on a compensatory basis. There is no shift of the midline structures. There is no evidence of acute intracranial hemorrhage or mass effect. There is a small bony protuberance arising from the external table of the skull in the left anterior temporal region. This is compatible with a benign osteoma or old trauma. IMPRESSION: 1. Cerebral atrophy. 2. Moderate patchy bilateral deep white matter lucencies compatible with chronic ischemic change. 3. No acute intracranial abnormality is detected. CT of the cervical spine without contrast, 12/04/2016: Noncontrast scans were obtained with multiplanar reconstructions produced. There is partial fusion of the C5 and C6 vertebral bodies. There are moderate scattered marginal spurs, most prominent at the C5-6 level. There are moderate hypertrophic degenerative changes involving multiple facet joints bilaterally. There is a slight associated spondylolisthesis at C4-5 and at C7-T1 due to facet joint arthropathy. There are mild scattered posterior disc bulges. The combination of findings is causing mild narrowing of the the central spinal canal and moderate foraminal narrowing, more so on the left, at C5-6. No acute fracture is identified. IMPRESSION: 1. Moderate multilevel degenerative change. 2. No acute bony abnormality is detected. PQRS Compliance Statement: One or more of the following individualized dose reduction techniques were utilized for this examination: 1. Automated exposure control 2. Adjustment of the mA and/or kV according to patient size 3. Use of iterative reconstruction technique DICTATED AND SIGNED BY: DAINA GONZALEZ MD DATE: 12/04/16 0911 CC: ILIA BUCKNER MD; BRISA KIM DO; HANNAH CHRISTOPHER MD ~ [address] [address] IMAGING REPORT Signed PATIENT: CLARKE SERVIN ACCOUNT: [id number] : 1935 [facility]: [facility] AGE: 81 SEX: F EXAM [id number] STATUS: ADM IN ORD. PHYSICIAN: BRISA KIM DO REASON: fall PROCEDURE: FOREARM RIGHT; WRIST 3V RIGHT Right wrist, 3 views, 12/04/2016: History: Fall There is patchy bony demineralization. There is a slightly comminuted fracture of the distal radius. There is moderate lateral and dorsal displacement and mild dorsal angulation of the major distal fracture fragment. A small ulnar styloid fracture is also noted. The carpal bones are intact. There is moderate degenerative changes at the wrist. Right forearm, 2 views, 12/04/2016: No additional fracture or dislocation is identified. IMPRESSION: 1. Demineralization. 2. Displaced and angulated distal radial fracture. 3. Ulnar styloid fracture. DICTATED AND SIGNED BY: DAINA GONZALEZ MD DATE: 12/04/16949 CC: ILIA BUCKNER MD; BRISA KIM DO; HANNAH CHRISTOPHER MD ~ [address] [address] IMAGING REPORT Signed PATIENT: CLARKE SERVIN ACCOUNT: [id number] : 1935 LOCATION: [facility] AGE: 79 SEX: F EXAM STATUS: ADM IN ORD. PHYSICIAN: RODRIGO SALAS MD REASON: alterred mental status PROCEDURE: CHEST PA & LATERAL 2 view CXR: Clinical indications: Altered mental status. Shortness of breath.. Findings: No acute lung infiltrate or pleural effusion or pulmonary edema or lung mass or pneumothorax is seen. The heart size, pulmonary vasculature, mediastinum and both jade are unremarkable. The osseous structures appear intact. Impression: No acute radiographic abnormality is seen. DICTATED AND SIGNED BY: JOHN WILDER MD DATE: 12/08/14 6989 CC: RODRIGO SALAS MD; HANNAH CHRISTOPHER MD ~ Course & Med Decision Making Course & Med Decision Making Pertinent Labs and Imaging studies reviewed. (See chart for details) Fracture was placed in a splint and I verified dorsal sensation and movement to be intact of her fingers. Laceration was repaired. CT of her head neck and chest x-ray did not show any acute abnormalities. Patient is being admitted to Dr. Sesay for orthopedic consultation tomorrow. Patient is in stable condition being transferred to [place]. Final Impression Final Impression Right wrist fracture Right scalp laceration Problems: Dragon Disclaimer Dragon Disclaimer This electronic medical record was generated, in whole or in part, using a voice recognition dictation system. Laceration Repair Lac Repair Indication: Laceration Procedure: The patient was placed in the appropriate position and anesthesia around the right superior parietal lobe 1 mL of 1% buffered lidocaine. The area was then sterile water. The laceration was closed with 2 nate. Total repaired wound length: 1 cm. The patient tolerated the procedure well. Complications: No complications. HOUSTON TINEO MD December 04, 2016 11:27
[2016-12-04] MEDS ORDERED: LIDOCAINE WITH 8.4% SOD BICARB 3 ML DISP.SYRIN. IJ ONE (13:00)
[2016-12-04] MEDS ORDERED: DIPHTH,PERTUSS(ACELL),TET TOX 0.5 ML DISP.SYRIN. VAX IM ONE (13:00)
--- NOTE | 2016-12-04 13:54 | ACF ---
Admission Criteria Forms MUSCULOSKELETAL DISEASE GRG Clinical Indications for Admission to Inpatient Care (Place 'X' for any and all applicable criteria): Hospital admission is needed for appropriate care of the patient because of 1 or more of the following: [X]I. Fracture, dislocation, or other musculoskeletal injury requiring inpatient care(medical) as indicated by 1 or more of the following(4)(5)(6)(7) [ ]a) Vertebral fracture requiring observation for instability or neurologic compromise (8) [ ]b) Compartment syndrome (proven or cannot be ruled out during observation level of care) (9) [ ]c) Limb-threatening injury [ ]d) Major injury requiring inpatient stabilization such as traction initiation or external fixation before internal fixation or closure of complex or open fracture [ ]e) Major injury requiring inpatient treatment after emergency or observation level care (as appropriate) [X]f) Severe pain requiring acute inpatient management [ ]g) Injury with suspicion of abuse or neglect (eg., child, dependent elderly) [ ]II. Newly diagnosed or suspected bone, joint, or orthopedic device infection (e.g., osteomyelitis, septic arthritis) needing 1 or more of the following(1)(2)(3) [ ]a) IV antibiotics that cannot be initiated in other than inpatient setting (e.g., patient too unstable or home infusion not available) [ ]b) Device removal or replacement [ ]c) Bone or soft tissue debridement [ ]d) Joint drainage (drain placement or repetitive aspirations) [ ]III. Severe rheumatologic disease (e.g., systemic lupus erythematosus, rheumatoid arthritis) with complications or comorbidities (Also use Optimal Recovery Care Criteria or General Recovery Criteria as appropriate on the basis of predominant condition), including 1 or more of the following( 10)(11)(12)(13) [ ]a) Severe infection (e.g., NURSING SCHEDULER infection, sepsis) (14) [ ]b) Respiratory complications, including 1 or more of the following : [ ]i) Pleural effusion with respiratory compromise [ ]ii) Pulmonary hypertension with congestive failure [ ]iii) Respiratory failure [ ]iv) Pulmonary hemorrhage (15) [ ]c) Hematologic disease, including 1 or more of the following: [ ]i) Coagulopathy with bleeding [ ]ii) Thrombosis with hypercoagulable state [ ]iii) Thrombotic thrombocytopenic purpura [ ]d) Cerebritis with seizures, psychosis, or other severe abnormalities [ ]e) Vertebral destruction with monitoring needed for cervical myelopathy& possible respiratory compromise [ ]f) Exacerbation that requires inpatient treatment (e.g., intravenous immunosuppression) (16) [ ]g) Acute renal failure [ ]h) Cerebritis with seizures, psychosis, Altered mental status, or other neurologic abnormalities [ ]i) Pericardial effusion with tamponade [ ]j) Vertebral destruction, with monitoring needed for cervical myelopathy and possible respiratory compromise [ ]IV. Severe vasculitis with complications or comorbidities (Also use Optimal Recovery Care Criteria General Recovery Criteria as appropriate on the basis of predominant condition), including 1 or more of the following(11)(12)(17)(18)(19)(20) [ ]a) Exacerbation that requires inpatient treatment (e.g., intravenous immunosuppression) (19)(21) [ ]b) Pulmonary hemorrhage (15) [ ]c) NURSING SCHEDULER vasculitis with seizures, psychosis, Altered mental status that is severe or persistent, or other severe abnormalities (22) [ ]d) Cerebral infarction [ ]e) Gastrointestinal ischemia [ ]f) Gangrene or threatened amputation [ ]g) Renal failure (16) [ ]h) Other significant complications of vasculitis ( eg., tissue or organ ischemia, organ dysfunction ) [ ]V. Severe myopathy as indicated by 1 or more of the following (28)(29) [ ]a) New onset of airway compromise or inability to swallow [ ]b) Respiratory deterioration with observation needed for impending respiratory failure [ ]c) Exacerbation that requires inpatient treatment (e.g., intravenous immunosuppression) [ ]. Severe crystal gout (arthropathy) indicated by 1 or more of the following (23)(24) [ ]a) Severe pain requiring acute inpatient management [ ]b) Exacerbation that requires inpatient treatment (e.g., intravenous treatment) [ ]VII.Rhabdomyolysis and 1 or more of the following (25)(26)(27) [ ]a) Acute renal failure [ ]b) Need for intravenous hydration after emergency or observation level care (as appropriate) [ ]c) Inability to maintain oral hydration [ ]d) Change in mental status [ ]e) Electrolyte abnormality that remains after emergency or observation level care (as appropriate) [ ]VIII Post amputation complication, as indicated by ANY ONE of the following [ ]a) Infection [ ]b) Dehiscence [ ]c) Myodesis failure [ ]IX. Severe pain requiring acute inpatient management due to musculoskeletal condition [ ]X. Musculoskeletal Disease and ALL of the following: [ ]a) Symptom or finding for which emergency and observation care have failed or are not considered appropriate (Use General Criteria: Observation Care as appropriate) [ ]b) Presence of ANY ONE of the following [ ]i) A General Admission Criteria [ ]ii) A Pediatric General Admission Criteria The original [facility] [employer] content created by [facility] has been revised. The portions of the content which have been revised are identified through the use of italic text or in bold, and [facility] has neither reviewed nor approved the modified material. All other unmodified content is copyright [facility]. Please see references footnoted in the original [facility] edition 2016 Admission Criteria Met?: Yes RAMEZ GUERRERO December 04, 2016 13:54
[2016-12-04] MEDS ORDERED: SERT50TA PO (14:36)
[2016-12-04] MEDS ORDERED: DIVA125C PO (14:37)
[2016-12-04] MEDS ORDERED: LACT1TAB24 PO (14:38)
[2016-12-04] MEDS ORDERED: MELA3TAB2 PO (14:39)
== END 2016-12-04 15:50 | disposition other institution (70) ==
LOC: ER 09:58
DX: S52.501A Unspecified fracture of the lower end of right radius, initial encounter for closed fracture (principal); S01.01XA Laceration without foreign body of scalp, initial encounter; E03.9 Hypothyroidism, unspecified; I10 Essential (primary) hypertension; Z88.1 Allergy status to other antibiotic agents; Z88.8 Allergy status to other drugs, medicaments and biological substances; W19.XXXA Unspecified fall, initial encounter; Y93.89 Activity, other specified; Y99.8 Other external cause status; Y92.89 Other specified places as the place of occurrence of the external cause
CPT/HCPCS: 12001; 29105; 90471; 90715; 96374; 99285; J3010; 99284-25